=== PATIENT | female | born 1970 | race Caucasian/White ===

== ENCOUNTER 2020-11-14 06:40 | Inpatient (IN) ==
--- NOTE | 2020-11-14 06:52 | DR.SOBA ---
HPI <Tomy Osborn Osmel Filed: 11/14/20 08:47> Time Seen Time Seen by Provider: 11/14/20 06:48 HPI Comment HPI Comment: PATIENT RECENTLY DIAGNOSED WITH COVID 2 DAYS AGO, RECEIVED 2ND COURSE OF REMDESIVIR, ANTIBIOTIC ZITHROMAX, PLACED ON HOME OXYGEN, HAS INCREASING DYSPNEA AND NONPRODUCTIVE COUGH. Complaints Chief Complaint Doctors Comments: COUGH, INCREASING DYSPNEA COVID-19 Coronavirus risk:travel/contact w/high risk person: Yes Has patient experienced Coronavirus symptoms: Yes Coronavirus symptoms experienced: Fever, Coughing and Shortness of Breath Source History Provided: Patient Mode of Arrival Mode of Arrival: Wheelchair Context Onset:: At Rest Modifying Factors Worsens:: Exertion Improves:: Nothing Associated Signs and Symptoms Associated Signs and Symptoms: Cough If Cough Cough: Nonproductive PMH <Tomy Osborn Last Filed: 11/14/20 08:47> PMH Past Medical History: Hypertension Past Surgical History: No Social History Do you use any recreational Drugs:: No Travel Risk Coronavirus risk:travel/contact w/high risk person: Yes Has patient experienced Coronavirus symptoms: Yes Coronavirus symptoms experienced: Fever, Coughing and Shortness of Breath ROS <Tomy Osborn Last Filed: 11/14/20 08:47> Review of Systems Constitutional: See HPI, Fever and Weakness Eyes: No Symptoms Reported ENTM: No Symptoms Reported Respiratoy: See HPI, Dry Cough and Short of Breath Cardiovascular: No Symptoms Reported Gastrointestinal/Abdominal: No Symptoms Reported Genitourinary: No Symptoms Reported Neurological: No Symptoms Reported Musculoskeletal: No Symptoms Reported Integumentary: No Symptoms Reported Hematologic/Lymphatic: No Symptoms Reported Endocrine: No Symptoms Reported Psychiatric: No Symptoms Reported All Other Systems: Reviewed and Negative PE <Tomy Osborn Osmel Filed: 11/14/20 08:47> Vital Signs Vitals: Pulse Rate 78 Respiratory Rate 26 Blood Pressure [Right Arm] 118/65 Blood Pressure 126/84 O2 Sat by Pulse Oximetry 94 General General Appearance: Alert and In Distress (MODERATE DISTRESS) Head Head Exam: Normal Inspection and Atraumatic Eyes Eye exam: Normal Appearance, PERRL and EOMI ENT ENT Exam: Normal Exam and Normal Oropharynx Neck Neck Exam: Normal Inspection and Full ROM Respiratory Respiratory Exam: Bilateral: Decreased Breath Sounds (MODERATE AIR EXCHANGE) and Bilateral: Dullness on Percussion and Lower: Decreased Breath Sounds (MODERATE AIR EXCHANGE) and Lower: Dullness on Percussion Cardiovascular Cardiovascular Exam: Regular Rate and Normal Rhythm Abdominal Exam Abdominal Exam: Normal Inspection, Normal Bowel Sounds and Soft Extremities Extremities Exam: Normal Inspection and Full ROM Back Back Exam: Normal Inspection, Full ROM and Tenderness Neurologic Neurological Exam: Alert and Oriented X3 Psychiatric Psychiatric Exam: Normal Affect and Normal Mood Skin Skin Exam: Warm and Dry <CARLITOS VELAZQUEZ - Last Filed: 11/14/20 09:53> Vital Signs Vitals: Pulse Rate 78 Respiratory Rate 26 Blood Pressure [Right Arm] 118/65 Blood Pressure 126/84 O2 Sat by Pulse Oximetry 94 MDM <Tomy Osborn - Last Filed: 11/14/20 08:47> Differential Diagnosis Differential Diagnosis Comment:: COVID PNEUMONIA, PULMONARY EMBOLISM COURSE <Tomy Osborn - Last Filed: 11/14/20 08:47> Treatment Treatment: IV NORMAL SALINE 1 LITER BOLUS, ANTIBIOTIC LEVAQUIN 750MG IVPB, SO LUMEDROL 125MG IV, DUONEB 12ML AEROSOL TX, PATIENT CARE ENDORSED TO DR VELAZQUEZ AT 0845 ROR <Tomy Osborn - Last Filed: 11/14/20 08:47> Labs Reviewed Laboratory Results Reviewed?: Yes Result Diagrams: 11/14/20 07:24 11/14/20 07:24 Laboratory: WBC 4.4 X10^3/uL (3.6-10.0) 11/14/20 07:24 RBC 5.68 X10^6/uL (3.5-5.4) H 11/14/20 07:24 Hgb 15.9 g/dL (12.0-16.0) 11/14/20 07:24 Hct 45.4 % (36.0-47.0) 11/14/20 07:24 MCV 80.0 fL (80.0-100.0) 11/14/20 07:24 MCH 28.0 pg (27.0-34.0) 11/14/20 07:24 MCHC 35.0 g/dL (33.0-35.0) 11/14/20 07:24 RDW 14.0 % (11.6-16.5) 11/14/20 07:24 Plt Count 165 X10^3/uL (150.0-450.0) 11/14/20 07:24 MPV 8.4 fL (7.4-11.0) 11/14/20 07:24 Neut % (Auto) 76.5 % (42.0-75.0) H 11/14/20 07:24 Lymph % (Auto) 11.0 % (21.0-51.0) L 11/14/20 07:24 [place] % (Auto) 12.4 % (0.0-13.0) 11/14/20 07:24 Eos % (Auto) 0.0 % (0.9-2.9) L 11/14/20 07:24 Baso % (Auto) 0.1 % (0.2-1.0) L 11/14/20 07:24 Neut # (Auto) 3.3 x10^3/uL (2.2-4.8) 11/14/20 07:24 Lymph # (Auto) 0.5 X10^3/uL (1.3-2.9) L 11/14/20 07:24 [place] # (Auto) 0.5 x10^3/uL (0.3-0.8) 11/14/20 07:24 Eos # (Auto) 0.0 x10^3/uL (0.0-0.2) 11/14/20 07:24 Baso # (Auto) 0.0 X10^3/uL (0.0-0.1) 11/14/20 07:24 Absolute Nucleated RBC 0.1 /100WBC 11/14/20 07:24 PT 13.1 SECONDS (11.8-14.3) 11/14/20 07:24 INR Target Range - 11/14/20 07:24 INR 1.04 (0.8-1.3) 11/14/20 07:24 D-Dimer 0.30 ug/ml (0.0-0.57) 11/14/20 07:24 Sample Site Lr 11/14/20 07:09 ABG pH 7.480 (7.35-7.45) H 11/14/20 07:09 ABG pCO2 34.0 mmHg (35.0-45.0) L 11/14/20 07:09 ABG pO2 59.0 mmHg (80.0-100.0) L 11/14/20 07:09 ABG HCO3 25.3 mmol/L (22-26) 11/14/20 07:09 ABG O2 Saturation 92.0 % (90-100) 11/14/20 07:09 ABG Base Excess 2.1 mmol/L (-2.0-2.0) H 11/14/20 07:09 Justin Test Pos 11/14/20 07:09 A-a Gradient 612.0 mmHg 11/14/20 07:09 FiO2 100.0 11/14/20 07:09 Blood Gas Comments Min well sd/gmb 11/14/20 07:09 Sodium 137 mmol/L (136-145) 11/14/20 07:24 Corrected Sodium 143 mmol/L (136-145) 11/14/20 07:24 Potassium 4.0 mmol/L (3.5-5.1) 11/14/20 07:24 Chloride 99 mmol/L (98-107) 11/14/20 07:24 Carbon Dioxide 26.8 mmol/L (21-32) 11/14/20 07:24 BUN 27 mg/dL (7-18) H 11/14/20 07:24 Creatinine 0.87 mg/dL (0.55-1.02) 11/14/20 07:24 Est GFR (MDRD) Af Amer > 60 (>60) 11/14/20 07:24 Est GFR (MDRD) Non-Af > 60 (>60) 11/14/20 07:24 Glucose 353 mg/dL (65-99) H 11/14/20 07:24 Calcium 8.7 mg/dL (8.5-10.1) 11/14/20 07:24 Ferritin 2202 ng/mL (8-252) H 11/14/20 07:24 XRAY X-ray Results: PORTABLE CHEST XRAY- INTERVAL WORSENING RUL INFILTRATES <PETER M [place] - Last Filed: 11/14/20 09:53> Labs Reviewed Laboratory: WBC 4.4 X10^3/uL (3.6-10.0) 11/14/20 07:24 RBC 5.68 X10^6/uL (3.5-5.4) H 11/14/20 07:24 Hgb 15.9 g/dL (12.0-16.0) 11/14/20 07:24 Hct 45.4 % (36.0-47.0) 11/14/20 07:24 MCV 80.0 fL (80.0-100.0) 11/14/20 07:24 MCH 28.0 pg (27.0-34.0) 11/14/20 07:24 MCHC 35.0 g/dL (33.0-35.0) 11/14/20 07:24 RDW 14.0 % (11.6-16.5) 11/14/20 07:24 Plt Count 165 X10^3/uL (150.0-450.0) 11/14/20 07:24 MPV 8.4 fL (7.4-11.0) 11/14/20 07:24 Neut % (Auto) 76.5 % (42.0-75.0) H 11/14/20 07:24 Lymph % (Auto) 11.0 % (21.0-51.0) L 11/14/20 07:24 [place] % (Auto) 12.4 % (0.0-13.0) 11/14/20 07:24 Eos % (Auto) 0.0 % (0.9-2.9) L 11/14/20 07:24 Baso % (Auto) 0.1 % (0.2-1.0) L 11/14/20 07:24 Neut # (Auto) 3.3 x10^3/uL (2.2-4.8) 11/14/20 07:24 Lymph # (Auto) 0.5 X10^3/uL (1.3-2.9) L 11/14/20 07:24 [place] # (Auto) 0.5 x10^3/uL (0.3-0.8) 11/14/20 07:24 Eos # (Auto) 0.0 x10^3/uL (0.0-0.2) 11/14/20 07:24 Baso # (Auto) 0.0 X10^3/uL (0.0-0.1) 11/14/20 07:24 Absolute Nucleated RBC 0.1 /100WBC 11/14/20 07:24 PT 13.1 SECONDS (11.8-14.3) 11/14/20 07:24 INR Target Range - 11/14/20 07:24 INR 1.04 (0.8-1.3) 11/14/20 07:24 D-Dimer 0.30 ug/ml (0.0-0.57) 11/14/20 07:24 Sample Site Lr 11/14/20 07:09 ABG pH 7.480 (7.35-7.45) H 11/14/20 07:09 ABG pCO2 34.0 mmHg (35.0-45.0) L 11/14/20 07:09 ABG pO2 59.0 mmHg (80.0-100.0) L 11/14/20 07:09 ABG HCO3 25.3 mmol/L (22-26) 11/14/20 07:09 ABG O2 Saturation 92.0 % (90-100) 11/14/20 07:09 ABG Base Excess 2.1 mmol/L (-2.0-2.0) H 11/14/20 07:09 Justin Test Pos 11/14/20 07:09 A-a Gradient 612.0 mmHg 11/14/20 07:09 FiO2 100.0 11/14/20 07:09 Blood Gas Comments Min well sd/gmb 11/14/20 07:09 Sodium 137 mmol/L (136-145) 11/14/20 07:24 Corrected Sodium 143 mmol/L (136-145) 11/14/20 07:24 Potassium 4.0 mmol/L (3.5-5.1) 11/14/20 07:24 Chloride 99 mmol/L (98-107) 11/14/20 07:24 Carbon Dioxide 26.8 mmol/L (21-32) 11/14/20 07:24 BUN 27 mg/dL (7-18) H 11/14/20 07:24 Creatinine 0.87 mg/dL (0.55-1.02) 11/14/20 07:24 Est GFR (MDRD) Af Amer > 60 (>60) 11/14/20 07:24 Est GFR (MDRD) Non-Af > 60 (>60) 11/14/20 07:24 Glucose 353 mg/dL (65-99) H 11/14/20 07:24 Calcium 8.7 mg/dL (8.5-10.1) 11/14/20 07:24 Ferritin 2202 ng/mL (8-252) H 11/14/20 07:24 Opioid <Tomy Osborn - Last Filed: 11/14/20 08:47> Opioid Risk Tool Age (Robin box if 16-45): No History of Preadolescent Sexual Abuse: No Total: 0 Total Score Risk Category: Low Risk Copyright: Beau CRAIG predicting aberrant behaviors <CARLITOS VELAZQUEZ - Last Filed: 11/14/20 09:53> Opioid Risk Tool Total: 0 Total Score Risk Category: Low Risk <Tomy Osborn - Last Filed: 11/14/20 08:47> Diagnosis Discharge Problem: Pneumonia due to COVID-19 virus <CARLITOS VELAZQUEZ - Last Filed: 11/14/20 09:53> Diagnosis Narrative Support Text: admit to dr lemus- inpatient <CARLITOS VELAZQUEZ - Last Filed: 11/14/20 09:53> Additional Notes Additional Notes: inpatient
[2020-11-14 06:55] VITALS: BMI 31.7
[2020-11-14] MEDS ORDERED: DUONEB 0.5 MG/3 MG (3 mL) NEB ONE (07:04)
[2020-11-14] MEDS ORDERED: SOLU-Medrol 125 MG VIAL IVP ONE (07:04)
[2020-11-14] MEDS ORDERED: LEVAQUIN PREMIX IV 750 MG 750 MG/150 ML BAG IV ONE ×2 (07:04→07:25)
[2020-11-14 07:19] LABS: ABG BASE EXCESS 2.1 mmol/L (-2.0-2.0); ABG HCO3 25.3 mmol/L (22-26)
[2020-11-14 07:20] LABS: ABG ALLEN TEST POS
[2020-11-14] MEDS ORDERED: NS 1000 ML 1,000 ML IV ONE (07:23)
[2020-11-14] MEDS ORDERED: SOLU-Medrol 125 MG VIAL ONE (07:24)
[2020-11-14] MEDS ORDERED: NS 1000 ML 1,000 ML ONE ×2 (07:24→14:39)
--- NOTE | 2020-11-14 07:45 | RAD ---
HISTORYDYSPNEASTUDYCHEST, 1 [id number]/14/2021.TECHNIQUEAP view of the chestFINDINGSCardiac and mediastinal contours are within normal limits. Interval worsening of scattered bilateral airspace and interstitial opacities particularly in the medial right upper lobe. No definite pleural effusion or pneumothorax. Soft tissue attenuation limits evaluation.IMPRESSIONInterval worsening of airspace disease particularly in the right upper lobe consistent with worsening pneumonia.Electronically signed by: Bud Roque (Nov 14, 2020 07:43:21)
[2020-11-14 07:48] LABS: BASOPHILS % (AUTO) 0.1 % (0.2-1.0); HEMATOCRIT 45.4 % (36.0-47.0); HEMOGLOBIN 15.9 g/dL (12.0-16.0); LYMPHOCYTES # (AUTO) 0.5 X10^3/uL (1.3-2.9); MEAN PLATELET VOLUME 8.4 fL (7.4-11.0); MONOCYTES # (AUTO) 0.5 x10^3/uL (0.3-0.8); MONOCYTES % (AUTO) 12.4 % (0.0-13.0); NEUTROPHILS # (AUTO) 3.3 x10^3/uL (2.2-4.8); NEUTROPHILS % (AUTO) 76.5 % (42.0-75.0); PLATELET COUNT 165 X10^3/uL (150.0-450.0); RED BLOOD COUNT 5.68 X10^6/uL (3.5-5.4); WHITE BLOOD COUNT 4.4 X10^3/uL (3.6-10.0)
[2020-11-14 08:00] LABS: BLOOD UREA NITROGEN 27 mg/dL (7-18); CALCIUM 8.7 mg/dL (8.5-10.1); CARBON DIOXIDE 26.8 mmol/L (21-32); CHLORIDE 99 mmol/L (98-107); COR NA(FOR HYPERGLY) 143 mmol/L (136-145); CREATININE 0.87 mg/dL (0.55-1.02); SODIUM 137 mmol/L (136-145); eGFR NON BLACK RACES > 60 (>60)
[2020-11-14] MEDS ORDERED: ZOFRAN INJ 4 MG VIAL IVP PRN (13:15)
[2020-11-14] MEDS ORDERED: TESSALON PERLES PO PRN (13:15)
[2020-11-14] MEDS ORDERED: REMDESIVIR 200 MG in NS 100 ML IV 140 ML IV ONE (13:16)
[2020-11-14] MEDS: ZITHROMAX INJ 500 MG VIAL 500 MG in NS 250 ML IV 250 ML IV SCH (14:05)
[2020-11-14] MEDS: IVERMECTIN PO SCH (15:00)
[2020-11-14] MEDS: VIBRAMYCIN PO SCH ×2 (15:00→21:03)
[2020-11-14] MEDS: SOLU-Medrol 125 MG VIAL IVP SCH ×2 (15:00→21:55)
[2020-11-14] MEDS: PROTONIX INJ 40 MG VIAL IVP SCH ×2 (15:00→21:03)
[2020-11-14] MEDS: LOVENOX INJ 40 MG SYR SC SCH (15:00)
[2020-11-14] MEDS: ROBITUSSIN DM PO SCH ×3 (15:00→21:03)
[2020-11-14] MEDS: BROVANA IN SCH (21:25)
[2020-11-14] MEDS: PULMICORT NEB TX 0.5 MG NEB SCH (21:25)
[2020-11-14] MEDS ORDERED: HumuLIN R ONE (21:28)
[2020-11-14] MEDS: HumuLIN R SUBCUT PRN (21:33)
[2020-11-15 04:22] LABS: ABG HCO3 29.1 mmol/L (22-26)
[2020-11-15] MEDS: SOLU-Medrol 125 MG VIAL IVP SCH ×3 (06:03→21:05)
[2020-11-15 06:20] LABS: BASOPHILS % (AUTO) 0.1 % (0.2-1.0); HEMATOCRIT 43.2 % (36.0-47.0); LYMPHOCYTES # (AUTO) 0.6 X10^3/uL (1.3-2.9); LYMPHOCYTES % (AUTO) 12.1 % (21.0-51.0); MEAN CORPUSCULAR HGB CONC 34.6 g/dL (33.0-35.0); MEAN CORPUSCULAR VOLUME 80.8 fL (80.0-100.0); MEAN PLATELET VOLUME 8.2 fL (7.4-11.0); MONOCYTES # (AUTO) 0.5 x10^3/uL (0.3-0.8); NEUTROPHILS # (AUTO) 3.6 x10^3/uL (2.2-4.8); NEUTROPHILS % (AUTO) 77.8 % (42.0-75.0); PLATELET COUNT 182 X10^3/uL (150.0-450.0); RED BLOOD COUNT 5.34 X10^6/uL (3.5-5.4); RED CELL DISTRIBUTION WIDTH 13.8 % (11.6-16.5); WHITE BLOOD COUNT 4.6 X10^3/uL (3.6-10.0)
[2020-11-15 06:42] LABS: BLOOD UREA NITROGEN 23 mg/dL (7-18); CALCIUM 8.3 mg/dL (8.5-10.1); CARBON DIOXIDE 28.5 mmol/L (21-32); CHLORIDE 101 mmol/L (98-107); COR NA(FOR HYPERGLY) 142 mmol/L (136-145); CREATININE 0.93 mg/dL (0.55-1.02); SODIUM 137 mmol/L (136-145); eGFR NON BLACK RACES > 60 (>60)
[2020-11-15] MEDS: BROVANA IN SCH ×2 (09:00→20:55)
[2020-11-15] MEDS: PULMICORT NEB TX 0.5 MG NEB SCH ×2 (09:00→20:55)
[2020-11-15] MEDS: VIBRAMYCIN PO SCH ×2 (09:30→21:05)
[2020-11-15] MEDS: ROBITUSSIN DM PO SCH ×4 (09:30→21:05)
[2020-11-15] MEDS: REMDESIVIR 100 MG in NS 100 ML IV + SPIKE MINIBAG* 120 ML IV SCH (09:30)
[2020-11-15] MEDS: IVERMECTIN PO SCH (09:30)
[2020-11-15] MEDS: LOVENOX INJ 40 MG SYR SC SCH (09:30)
[2020-11-15] MEDS: ZESTRIL TAB 20 MG PO SCH (09:30)
[2020-11-15] MEDS: PROTONIX INJ 40 MG VIAL IVP SCH ×2 (09:30→21:05)
[2020-11-15] MEDS: ZITHROMAX INJ 500 MG VIAL 500 MG in NS 250 ML IV 250 ML IV SCH (10:27)
[2020-11-15] MEDS: HumuLIN R SUBCUT PRN ×2 (13:00→21:06)
[2020-11-15] MEDS ORDERED: TYLENOL 325 MG TAB PO ONE (13:55)
[2020-11-15] MEDS: TYLENOL 325 MG TAB PO PRN (13:58)
[2020-11-15] MEDS ORDERED: GLUCOPHAGE ONE (17:20)
[2020-11-15] MEDS: GLUCOPHAGE PO SCH (17:27)
--- NOTE | 2020-11-15 18:08 | DR.H&P ---
H&P - History & Physical for Day of: H&P Date: 11/14/20 - Chief Complaint Chief Complaint: COVID 19+ SOB, CCC - History of Present Illness History of Present Illness: PATIENT RECENTLY DIAGNOSED WITH COVID 2 DAYS AGO, RECEIVED 2ND COURSE OF REMDESIVIR, ANTIBIOTIC ZITHROMAX, PLACED ON HOME OXYGEN, HAS INCREASING DYSPNEA AND NONPRODUCTIVE COUGH - Past Medical History Past Medical History: Hypertension - Past Surgical History Surgical History: , Other - Family History Family Medical History: Cancer, Hypertension - Social History Does patient currently use any type of tobacco product: No Have you used tobacco products in the last 12 months: No Type of Tobacco Use: None Does any household member use tobacco: No Alcohol Use: None Drug Use: None - Medications Home Medications: shellfish derived Allergy (Verified 11/12/20 15:09) CONTINUE taking the following medications lisinopril 20 mg PO DAILY 11/14/20 [History] - Review of Systems Constitutional: Fever, Weakness, Malaise Eyes: No Symptoms Reported ENT: No Symptoms Reported Respiratory: Shortness of Breath, SOB with Excertion Cardiovascular: No Symptoms Reported Gastrointestinal: Nausea Genitourinary: No Symptoms Reported Musculoskeletal: No Symptoms Reported Skin: No Symptoms Reported Neurological: Weakness - Physical Exam Vital Signs: Temperature 97.8 F Pulse Rate [Left Brachial] 76 Pulse Rate 75 Respiratory Rate 20 Blood Pressure [Left Arm] 112/69 Blood Pressure [Right Arm] 118/65 Blood Pressure 129/78 O2 Sat by Pulse Oximetry 92 Oriented: Normal Eyes: Normal Ear: Normal Nose: Normal Throat: Dry Respiratory: RLL Diminished, LLL Diminished Cardiovascular: Normal : Normal Auscultation: Bowel Sounds: Normal Palpation: Normal Tenderness: Normal Skin: Decreased Turgur Musculoskeletal: Normal Psychiatric: Normal Mood Description: Calm Speech Pattern: Clear, Appropriate - Assessment/Plan (1) Pneumonia due to COVID-19 virus Status: Acute Plan: ADMIT, ICU ISOLATION COVID UNIT. IV REMDESIVIR, IV SOLU MEDROL, IV HYDRATION, DUO NEBS. CTA ON ADMISSION, LOVENOX SQ. PT, RT. IV ATBX, BC AND SPUTUM CULTURE (2) Hypoxia Status: Acute - Allergies Allergies/Adverse Reactions: Allergies Allergy/AdvReac Type Severity Reaction Status Date / Time shellfish derived Allergy Verified 11/12/20 15:09
[2020-11-15] MEDS: SNACK - Diabetic Appropriate PO SCH (20:00)
[2020-11-15 20:54] LABS: ALANINE AMINOTRANSFERASE 54 Units/L (12-78); ALKALINE PHOSPHATASE 65 Units/L (46-116); ASPARTATE AMINO TRANSFERASE 34 Units/L (15-37); COR CA(FOR HYPOALB) 9.1 mg/dL (8.5-10.1); TOTAL PROTEIN 6.6 g/dL (6.4-8.2)
[2020-11-16 00:30] LABS: ALANINE AMINOTRANSFERASE 57 Units/L (12-78); ALBUMIN 3.1 g/dL (3.4-5.0); ALKALINE PHOSPHATASE 91 Units/L (46-116); ASPARTATE AMINO TRANSFERASE 39 Units/L (15-37); COR CA(FOR HYPOALB) 9.4 mg/dL (8.5-10.1); TOTAL PROTEIN 6.9 g/dL (6.4-8.2); TROPONIN I < 0.02 ng/mL (0-1.5)
[2020-11-16] MEDS ORDERED: GLUCOPHAGE ONE ×2 (05:46→17:00)
[2020-11-16] MEDS: SOLU-Medrol 125 MG VIAL IVP SCH (06:00)
[2020-11-16] MEDS: GLUCOPHAGE PO SCH ×2 (06:01→17:04)
[2020-11-16 06:37] LABS: BASOPHILS % (AUTO) 0.1 % (0.2-1.0); HEMATOCRIT 41.1 % (36.0-47.0); HEMOGLOBIN 14.3 g/dL (12.0-16.0); LYMPHOCYTES # (AUTO) 0.5 X10^3/uL (1.3-2.9); LYMPHOCYTES % (AUTO) 11.7 % (21.0-51.0); MEAN CORPUSCULAR HEMOGLOBIN 27.6 pg (27.0-34.0); MEAN CORPUSCULAR HGB CONC 34.7 g/dL (33.0-35.0); MEAN CORPUSCULAR VOLUME 79.7 fL (80.0-100.0); MEAN PLATELET VOLUME 8.4 fL (7.4-11.0); MONOCYTES # (AUTO) 0.4 x10^3/uL (0.3-0.8); MONOCYTES % (AUTO) 9.4 % (0.0-13.0); NEUTROPHILS # (AUTO) 3.7 x10^3/uL (2.2-4.8); NEUTROPHILS % (AUTO) 78.8 % (42.0-75.0); PLATELET COUNT 179 X10^3/uL (150.0-450.0); RED BLOOD COUNT 5.16 X10^6/uL (3.5-5.4); RED CELL DISTRIBUTION WIDTH 13.7 % (11.6-16.5); WHITE BLOOD COUNT 4.6 X10^3/uL (3.6-10.0)
[2020-11-16] MEDS: HumuLIN R SUBCUT PRN ×4 (06:58→22:00)
[2020-11-16 06:59] LABS: ALANINE AMINOTRANSFERASE 43 Units/L (12-78); ALBUMIN 2.4 g/dL (3.4-5.0); ALKALINE PHOSPHATASE 53 Units/L (46-116); ASPARTATE AMINO TRANSFERASE 27 Units/L (15-37); BLOOD UREA NITROGEN 23 mg/dL (7-18); CARBON DIOXIDE 29.1 mmol/L (21-32); CHLORIDE 103 mmol/L (98-107); COR CA(FOR HYPOALB) 9.3 mg/dL (8.5-10.1); COR NA(FOR HYPERGLY) 142 mmol/L (136-145); CREATININE 0.66 mg/dL (0.55-1.02); SODIUM 138 mmol/L (136-145); TOTAL PROTEIN 5.6 g/dL (6.4-8.2); eGFR NON BLACK RACES > 60 (>60)
[2020-11-16] MEDS: ROBITUSSIN DM PO SCH ×4 (08:16→21:59)
[2020-11-16] MEDS: PROTONIX INJ 40 MG VIAL IVP SCH ×2 (08:16→21:58)
[2020-11-16] MEDS: IVERMECTIN PO SCH (08:16)
[2020-11-16] MEDS: VIBRAMYCIN PO SCH ×2 (08:16→21:58)
[2020-11-16] MEDS: ZESTRIL TAB 20 MG PO SCH (08:16)
[2020-11-16] MEDS: REMDESIVIR 100 MG in NS 100 ML IV + SPIKE MINIBAG* 120 ML IV SCH (08:16)
[2020-11-16] MEDS: LOVENOX INJ 40 MG SYR SC SCH (08:17)
[2020-11-16] MEDS: PULMICORT NEB TX 0.5 MG NEB SCH ×2 (09:12→20:43)
[2020-11-16] MEDS: BROVANA IN SCH ×2 (09:12→20:43)
--- NOTE | 2020-11-16 10:14 | RAD ---
HISTORYhypoxia, covid 19STUDYCHEST x-ray, 1 VIEWCOMPARISONX-ray 11/14/2020FINDINGSHeart is normal in size. Worsening bilateral pneumonia is likely from COVID 19. No pneumothorax or pleural effusion is seen.IMPRESSIONProminent bilateral COVID-19 pneumonia has worsened since prior study.Electronically signed by: Adams Jaime (Nov 16, 2020 10:11:57)
[2020-11-16] MEDS: ZITHROMAX INJ 500 MG VIAL 500 MG in NS 250 ML IV 250 ML IV SCH (10:30)
[2020-11-16 10:47] LABS: ABG BASE EXCESS 4.2 mmol/L (-2.0-2.0); ABG HCO3 27.3 mmol/L (22-26)
[2020-11-16] MEDS: SOLU-Medrol 40 MG VIAL IVP SCH ×2 (14:30→21:58)
[2020-11-16] MEDS ORDERED: BUTT CREAM (COMPOUND) ONE (17:08)
[2020-11-16] MEDS: BUTT CREAM (COMPOUND) TOP PRN (17:12)
[2020-11-16] MEDS: TORADOL 15 MG VIAL IVP PRN (20:01)
[2020-11-16] MEDS: SNACK - Diabetic Appropriate PO SCH (21:58)
--- NOTE | 2020-11-17 05:12 | RAD ---
HISTORYcovidSTUDYPortable AP [id number]/18/2020FINDINGSSimilar normal heart size and contour. There is slight suggested interval increased/progression of bilateral infiltrates. No additional consolidation, complicating pneumothorax or pleural fluid demonstrated.IMPRESSIONPersistent bilateral pneumonia with slight suggested progression since 1 day earlier.Electronically signed by: MADALYN ALEXANDER (Nov 17, 2020 05:10:15)
[2020-11-17] MEDS ORDERED: GLUCOPHAGE ONE ×2 (05:18→16:53)
[2020-11-17 06:12] LABS: BASOPHILS % (AUTO) 0.1 % (0.2-1.0); HEMATOCRIT 40.1 % (36.0-47.0); HEMOGLOBIN 13.9 g/dL (12.0-16.0); LYMPHOCYTES # (AUTO) 0.6 X10^3/uL (1.3-2.9); LYMPHOCYTES % (AUTO) 10.7 % (21.0-51.0); MEAN CORPUSCULAR HEMOGLOBIN 27.6 pg (27.0-34.0); MEAN CORPUSCULAR HGB CONC 34.6 g/dL (33.0-35.0); MEAN CORPUSCULAR VOLUME 79.9 fL (80.0-100.0); MEAN PLATELET VOLUME 8.1 fL (7.4-11.0); MONOCYTES # (AUTO) 0.5 x10^3/uL (0.3-0.8); MONOCYTES % (AUTO) 8.3 % (0.0-13.0); NEUTROPHILS # (AUTO) 4.8 x10^3/uL (2.2-4.8); NEUTROPHILS % (AUTO) 80.9 % (42.0-75.0); PLATELET COUNT 209 X10^3/uL (150.0-450.0); RED BLOOD COUNT 5.02 X10^6/uL (3.5-5.4); RED CELL DISTRIBUTION WIDTH 13.8 % (11.6-16.5)
[2020-11-17 06:13] LABS: ABG BASE EXCESS 7.3 mmol/L (-2.0-2.0); ABG HCO3 29.3 mmol/L (22-26)
[2020-11-17 06:15] LABS: ABG ALLEN TEST POS
[2020-11-17] MEDS: SOLU-Medrol 40 MG VIAL IVP SCH (06:23)
[2020-11-17] MEDS: GLUCOPHAGE PO SCH ×2 (06:24→16:57)
[2020-11-17] MEDS: TORADOL 15 MG VIAL IVP PRN (06:24)
[2020-11-17 06:29] LABS: ALANINE AMINOTRANSFERASE 43 Units/L (12-78); ALBUMIN 2.2 g/dL (3.4-5.0); ALKALINE PHOSPHATASE 53 Units/L (46-116); ASPARTATE AMINO TRANSFERASE 23 Units/L (15-37); BLOOD UREA NITROGEN 27 mg/dL (7-18); CALCIUM 7.8 mg/dL (8.5-10.1); CARBON DIOXIDE 30.6 mmol/L (21-32); CHLORIDE 101 mmol/L (98-107); COR CA(FOR HYPOALB) 9.2 mg/dL (8.5-10.1); COR NA(FOR HYPERGLY) 141 mmol/L (136-145); CREATININE 0.72 mg/dL (0.55-1.02); SODIUM 137 mmol/L (136-145); TOTAL PROTEIN 5.2 g/dL (6.4-8.2); eGFR NON BLACK RACES > 60 (>60)
[2020-11-17 08:36] LABS: MICROCYTOSIS SLIGHT; PLATELET MORPHOLOGY COMMENT NORMAL (NORMAL)
[2020-11-17] MEDS ORDERED: LASIX IVP ONE (10:04)
[2020-11-17] MEDS ORDERED: MICRO K EXTEN CAP 10 MEQ PO ONE (10:05)
[2020-11-17] MEDS: BROVANA IN SCH ×2 (10:06→21:00)
[2020-11-17] MEDS: PULMICORT NEB TX 0.5 MG NEB SCH ×2 (10:06→21:00)
[2020-11-17] MEDS ORDERED: ZESTRIL TAB 20 MG ONE (10:31)
[2020-11-17] MEDS: IVERMECTIN PO SCH (10:41)
[2020-11-17] MEDS: PROTONIX INJ 40 MG VIAL IVP SCH ×2 (10:41→21:44)
[2020-11-17] MEDS: REMDESIVIR 100 MG in NS 100 ML IV + SPIKE MINIBAG* 120 ML IV SCH (10:42)
[2020-11-17] MEDS: LOVENOX INJ 40 MG SYR SC SCH (10:42)
[2020-11-17] MEDS: VIBRAMYCIN PO SCH ×2 (10:43→21:46)
[2020-11-17] MEDS: ZITHROMAX INJ 500 MG VIAL 500 MG in NS 250 ML IV 250 ML IV SCH (10:43)
[2020-11-17] MEDS: ZESTRIL TAB 20 MG PO SCH (10:43)
[2020-11-17] MEDS: ROBITUSSIN DM PO SCH ×4 (10:43→21:45)
[2020-11-17] MEDS: HumuLIN R SUBCUT PRN ×3 (11:56→21:51)
[2020-11-17] MEDS: SOLU-Medrol 125 MG VIAL IVP SCH ×2 (14:36→22:50)
[2020-11-17] MEDS: SNACK - Diabetic Appropriate PO SCH (20:44)
[2020-11-18] MEDS: TORADOL 15 MG VIAL IVP PRN (06:57)
[2020-11-18] MEDS: HumuLIN R SUBCUT PRN ×5 (06:59→20:40)
[2020-11-18] MEDS: SOLU-Medrol 125 MG VIAL IVP SCH ×3 (07:00→22:10)
[2020-11-18] MEDS: BROVANA IN SCH ×2 (09:00→21:15)
[2020-11-18] MEDS: PULMICORT NEB TX 0.5 MG NEB SCH ×2 (09:07→21:15)
[2020-11-18] MEDS ORDERED: GLUCOPHAGE ONE ×2 (09:41→16:19)
[2020-11-18] MEDS ORDERED: ZESTRIL TAB 20 MG ONE (09:41)
[2020-11-18] MEDS: LOVENOX INJ 40 MG SYR SC SCH (09:45)
[2020-11-18] MEDS: IVERMECTIN PO SCH (09:50)
[2020-11-18] MEDS: GLUCOPHAGE PO SCH ×2 (09:53→16:31)
[2020-11-18] MEDS: ROBITUSSIN DM PO SCH ×4 (09:53→21:08)
[2020-11-18] MEDS: PROTONIX INJ 40 MG VIAL IVP SCH ×2 (09:54→21:30)
[2020-11-18] MEDS: ZESTRIL TAB 20 MG PO SCH (10:06)
[2020-11-18] MEDS: VIBRAMYCIN PO SCH ×2 (10:07→21:06)
[2020-11-18] MEDS: REMDESIVIR 100 MG in NS 100 ML IV + SPIKE MINIBAG* 120 ML IV SCH (10:08)
[2020-11-18] MEDS ORDERED: NS 250 ML IV 250 ML IV ONE (10:24)
--- NOTE | 2020-11-18 10:45 | RAD ---
HISTORYCOVID PNEUMONIASTUDYCHEST, 1 [id number]/19/2021FINDINGSThe cardiomediastinal silhouette is stable. Similar bilateral airspace opacities. The bony thorax appears intact.IMPRESSIONSimilar bilateral airspace opacities.Electronically signed by: KEVYN PAK (Nov 18, 2020 10:44:23)
[2020-11-18 10:54] LABS: ABG ALLEN TEST POS; ABG BASE EXCESS 6.1 mmol/L (-2.0-2.0); ABG HCO3 29.6 mmol/L (22-26)
[2020-11-18 11:03] LABS: BASOPHILS % (AUTO) 0.1 % (0.2-1.0); HEMATOCRIT 42.4 % (36.0-47.0); HEMOGLOBIN 14.6 g/dL (12.0-16.0); LYMPHOCYTES # (AUTO) 0.4 X10^3/uL (1.3-2.9); LYMPHOCYTES % (AUTO) 5.8 % (21.0-51.0); MEAN CORPUSCULAR HEMOGLOBIN 27.7 pg (27.0-34.0); MEAN CORPUSCULAR HGB CONC 34.5 g/dL (33.0-35.0); MEAN CORPUSCULAR VOLUME 80.2 fL (80.0-100.0); MEAN PLATELET VOLUME 8.1 fL (7.4-11.0); MONOCYTES # (AUTO) 0.5 x10^3/uL (0.3-0.8); MONOCYTES % (AUTO) 6.9 % (0.0-13.0); NEUTROPHILS # (AUTO) 5.9 x10^3/uL (2.2-4.8); NEUTROPHILS % (AUTO) 87.2 % (42.0-75.0); PLATELET COUNT 233 X10^3/uL (150.0-450.0); RED BLOOD COUNT 5.28 X10^6/uL (3.5-5.4); RED CELL DISTRIBUTION WIDTH 13.7 % (11.6-16.5); WHITE BLOOD COUNT 6.8 X10^3/uL (3.6-10.0)
[2020-11-18 11:14] LABS: ALANINE AMINOTRANSFERASE 60 Units/L (12-78); ALBUMIN 2.4 g/dL (3.4-5.0); ALKALINE PHOSPHATASE 80 Units/L (46-116); ASPARTATE AMINO TRANSFERASE 32 Units/L (15-37); BLOOD UREA NITROGEN 32 mg/dL (7-18); CALCIUM 7.8 mg/dL (8.5-10.1); CARBON DIOXIDE 31.3 mmol/L (21-32); CHLORIDE 99 mmol/L (98-107); COR CA(FOR HYPOALB) 9.1 mg/dL (8.5-10.1); COR NA(FOR HYPERGLY) 140 mmol/L (136-145); CREATININE 0.88 mg/dL (0.55-1.02); SODIUM 134 mmol/L (136-145); TOTAL PROTEIN 5.5 g/dL (6.4-8.2); eGFR NON BLACK RACES > 60 (>60)
[2020-11-18] MEDS: ZITHROMAX INJ 500 MG VIAL 500 MG in NS 250 ML IV 250 ML IV SCH (11:54)
[2020-11-18] MEDS: MAGIC MOUTHWASH MT PRN (16:21)
[2020-11-18] MEDS ORDERED: DIFLUCAN 100 MG IV (MIX by PHARMACY)* 100 MG/50 ML BAG IV SCH (18:00)
[2020-11-18] MEDS: BACTROBAN TOPICAL OINT TOP SCH ×2 (18:30→22:00)
[2020-11-18] MEDS ORDERED: DIFLUCAN 200 MG IV PREMIX* 200 MG/100 ML BAG IV ONE (19:28)
[2020-11-18] MEDS: SNACK - Diabetic Appropriate PO SCH (20:15)
[2020-11-18] MEDS: BETADINE SOLN TOP SCH (22:03)
[2020-11-18] MEDS: NS IRRIGATION* 1,000 ML IR SCH (22:04)
[2020-11-19] MEDS: HumuLIN R SUBCUT PRN ×6 (05:51→21:39)
--- NOTE | 2020-11-19 06:18 | RAD ---
HISTORYPneumoniaSTUDYPortable AP chestCOMPARISONAugust 2020FINDINGSContinued normal heart size. Persistent patchy bilateral pulmonary infiltrates especially lower lungs, similar in the left lung and slightly increased at the right base. No complicating pneumothorax or pleural fluid is seen.IMPRESSIONPersistent bilateral pneumonia with slight interval progression in the right lower lung.Electronically signed by: MADALYN ALEXANDER (Nov 19, 2020 06:16:31)
[2020-11-19 06:20] LABS: CHLORIDE 103 mmol/L (98-107); SODIUM 137 mmol/L (136-145)
[2020-11-19] MEDS: SOLU-Medrol 125 MG VIAL IVP SCH ×3 (06:25→21:52)
[2020-11-19 06:39] LABS: BASOPHILS % (AUTO) 0.1 % (0.2-1.0); HEMATOCRIT 40.5 % (36.0-47.0); HEMOGLOBIN 13.9 g/dL (12.0-16.0); LYMPHOCYTES # (AUTO) 0.4 X10^3/uL (1.3-2.9); LYMPHOCYTES % (AUTO) 5.8 % (21.0-51.0); MEAN CORPUSCULAR HEMOGLOBIN 27.6 pg (27.0-34.0); MEAN CORPUSCULAR HGB CONC 34.2 g/dL (33.0-35.0); MEAN CORPUSCULAR VOLUME 80.7 fL (80.0-100.0); MEAN PLATELET VOLUME 8.6 fL (7.4-11.0); MONOCYTES # (AUTO) 0.5 x10^3/uL (0.3-0.8); NEUTROPHILS # (AUTO) 6.5 x10^3/uL (2.2-4.8); NEUTROPHILS % (AUTO) 87.1 % (42.0-75.0); PLATELET COUNT 236 X10^3/uL (150.0-450.0); RED BLOOD COUNT 5.02 X10^6/uL (3.5-5.4); RED CELL DISTRIBUTION WIDTH 14.1 % (11.6-16.5); WHITE BLOOD COUNT 7.5 X10^3/uL (3.6-10.0)
[2020-11-19 06:44] LABS: ALANINE AMINOTRANSFERASE 55 Units/L (12-78); ALBUMIN 2.3 g/dL (3.4-5.0); ALKALINE PHOSPHATASE 74 Units/L (46-116); ASPARTATE AMINO TRANSFERASE 22 Units/L (15-37); BLOOD UREA NITROGEN 30 mg/dL (7-18); CALCIUM 8.2 mg/dL (8.5-10.1); CARBON DIOXIDE 26.8 mmol/L (21-32); COR CA(FOR HYPOALB) 9.6 mg/dL (8.5-10.1); COR NA(FOR HYPERGLY) 142 mmol/L (136-145); CREATININE 0.66 mg/dL (0.55-1.02); TOTAL PROTEIN 5.1 g/dL (6.4-8.2); eGFR NON BLACK RACES > 60 (>60)
[2020-11-19 07:08] LABS: BAND NEUTROPHILS % 4 % (0-10); PLATELET MORPHOLOGY COMMENT NORMAL (NORMAL)
[2020-11-19] MEDS ORDERED: GLUCOPHAGE ONE ×2 (07:25→16:38)
[2020-11-19] MEDS ORDERED: ZESTRIL TAB 20 MG ONE (07:26)
[2020-11-19] MEDS: BACTROBAN TOPICAL OINT TOP SCH ×2 (09:03→20:53)
[2020-11-19] MEDS: ZESTRIL TAB 20 MG PO SCH (09:04)
[2020-11-19] MEDS: NS IRRIGATION* 1,000 ML IR SCH ×2 (09:04→20:53)
[2020-11-19] MEDS: BETADINE SOLN TOP SCH ×2 (09:04→20:54)
[2020-11-19] MEDS: LOVENOX INJ 40 MG SYR SC SCH (09:04)
[2020-11-19] MEDS: VIBRAMYCIN PO SCH ×2 (09:05→20:52)
[2020-11-19] MEDS: ROBITUSSIN DM PO SCH ×4 (09:05→20:52)
[2020-11-19] MEDS: PROTONIX INJ 40 MG VIAL IVP SCH ×2 (09:05→20:53)
[2020-11-19] MEDS: BROVANA IN SCH ×2 (09:15→21:12)
[2020-11-19] MEDS: PULMICORT NEB TX 0.5 MG NEB SCH ×2 (09:15→21:11)
[2020-11-19] MEDS: GLUCOPHAGE PO SCH ×2 (09:16→17:15)
[2020-11-19] MEDS: ZITHROMAX INJ 500 MG VIAL 500 MG in NS 250 ML IV 250 ML IV SCH (09:16)
[2020-11-19] MEDS: DIFLUCAN 200 MG IV PREMIX* 200 MG/100 ML BAG IV SCH (11:30)
[2020-11-19] MEDS: LASIX IVP SCH (11:35)
[2020-11-19] MEDS: K-DUR TAB 20 MEQ PO SCH (11:35)
[2020-11-19 12:23] LABS: ABG BASE EXCESS 4.3 mmol/L (-2.0-2.0); ABG HCO3 26.9 mmol/L (22-26)
[2020-11-19 12:24] LABS: ABG ALLEN TEST POSITIVE
[2020-11-19] MEDS: LEVEMIR SC SCH ×2 (17:15→21:39)
[2020-11-19] MEDS: SNACK - Diabetic Appropriate PO SCH ×2 (20:54→21:51)
[2020-11-20] MEDS ORDERED: GLUCOPHAGE ONE ×2 (05:47→16:28)
[2020-11-20] MEDS: HumuLIN R SUBCUT PRN ×2 (05:55→20:26)
[2020-11-20] MEDS: SOLU-Medrol 125 MG VIAL IVP SCH ×3 (05:56→21:34)
[2020-11-20] MEDS: GLUCOPHAGE PO SCH ×2 (06:00→16:38)
[2020-11-20 06:47] LABS: ALANINE AMINOTRANSFERASE 47 Units/L (12-78); ALBUMIN 2.2 g/dL (3.4-5.0); ALKALINE PHOSPHATASE 68 Units/L (46-116); ASPARTATE AMINO TRANSFERASE 15 Units/L (15-37); BASOPHILS % (AUTO) 0.1 % (0.2-1.0); BLOOD UREA NITROGEN 29 mg/dL (7-18); CALCIUM 8.2 mg/dL (8.5-10.1); CARBON DIOXIDE 28.3 mmol/L (21-32); CHLORIDE 103 mmol/L (98-107); COR CA(FOR HYPOALB) 9.6 mg/dL (8.5-10.1); COR NA(FOR HYPERGLY) 142 mmol/L (136-145); CREATININE 0.87 mg/dL (0.55-1.02); HEMATOCRIT 39.9 % (36.0-47.0); HEMOGLOBIN 13.8 g/dL (12.0-16.0); LYMPHOCYTES # (AUTO) 0.4 X10^3/uL (1.3-2.9); LYMPHOCYTES % (AUTO) 5.5 % (21.0-51.0); MEAN CORPUSCULAR HEMOGLOBIN 27.9 pg (27.0-34.0); MEAN CORPUSCULAR HGB CONC 34.5 g/dL (33.0-35.0); MEAN CORPUSCULAR VOLUME 80.7 fL (80.0-100.0); MEAN PLATELET VOLUME 8.7 fL (7.4-11.0); MONOCYTES # (AUTO) 0.6 x10^3/uL (0.3-0.8); MONOCYTES % (AUTO) 7.9 % (0.0-13.0); NEUTROPHILS # (AUTO) 6.5 x10^3/uL (2.2-4.8); NEUTROPHILS % (AUTO) 86.5 % (42.0-75.0); PLATELET COUNT 242 X10^3/uL (150.0-450.0); RED BLOOD COUNT 4.95 X10^6/uL (3.5-5.4); RED CELL DISTRIBUTION WIDTH 14.2 % (11.6-16.5); SODIUM 138 mmol/L (136-145); WHITE BLOOD COUNT 7.5 X10^3/uL (3.6-10.0); eGFR NON BLACK RACES > 60 (>60)
[2020-11-20] MEDS ORDERED: ZESTRIL TAB 20 MG ONE (07:18)
[2020-11-20] MEDS: ROBITUSSIN DM PO SCH ×4 (08:37→20:27)
[2020-11-20] MEDS: VIBRAMYCIN PO SCH ×2 (08:38→20:25)
[2020-11-20] MEDS: K-DUR TAB 20 MEQ PO SCH (08:38)
[2020-11-20] MEDS: BETADINE SOLN TOP SCH ×2 (08:39→20:28)
[2020-11-20] MEDS: BACTROBAN TOPICAL OINT TOP SCH ×2 (08:39→20:27)
[2020-11-20] MEDS: NS IRRIGATION* 1,000 ML IR SCH ×2 (08:39→20:27)
[2020-11-20] MEDS: ZESTRIL TAB 20 MG PO SCH (08:39)
[2020-11-20] MEDS: LASIX IVP SCH (08:39)
[2020-11-20] MEDS: PROTONIX INJ 40 MG VIAL IVP SCH ×2 (08:40→20:25)
[2020-11-20] MEDS: DIFLUCAN 200 MG IV PREMIX* 200 MG/100 ML BAG IV SCH (08:41)
[2020-11-20] MEDS: PULMICORT NEB TX 0.5 MG NEB SCH ×2 (09:00→21:16)
[2020-11-20] MEDS: BROVANA IN SCH ×2 (09:00→21:16)
[2020-11-20] MEDS: LOVENOX INJ 40 MG SYR SC SCH (10:15)
[2020-11-20] MEDS: ZITHROMAX INJ 500 MG VIAL 500 MG in NS 250 ML IV 250 ML IV SCH (10:16)
--- NOTE | 2020-11-20 12:57 | RAD ---
HISTORYSOBSTUDYPortable AP [id number]/21/2021FINDINGSContinued normal heart size and contour. Similar degree and distribu tion of bilateral airspace disease. No additional consolidation, large pleural effusion or developing extrapulmonary air identified.IMPRESSIONStable appearance of bilateral pneumonia.Electronically sign ed by: MADALYN ALEXANDER (Nov 20, 2020 12:56:01)
[2020-11-20] MEDS: LEVEMIR SC SCH (20:25)
[2020-11-20] MEDS: SNACK - Diabetic Appropriate PO SCH ×2 (20:26→20:27)
[2020-11-21] MEDS ORDERED: GLUCOPHAGE ONE ×2 (05:18→16:59)
[2020-11-21] MEDS ORDERED: SOLU-Medrol 40 MG VIAL ONE (05:19)
[2020-11-21 05:42] LABS: ABG ALLEN TEST POS; ABG BASE EXCESS 4.2 mmol/L (-2.0-2.0); ABG HCO3 27.1 mmol/L (22-26)
[2020-11-21] MEDS: SOLU-Medrol 125 MG VIAL IVP SCH ×3 (05:43→21:50)
[2020-11-21] MEDS: GLUCOPHAGE PO SCH ×2 (05:45→17:08)
[2020-11-21] MEDS: HumuLIN R SUBCUT PRN ×4 (05:47→22:38)
[2020-11-21 07:30] LABS: BASOPHILS % (AUTO) 0.1 % (0.2-1.0); HEMATOCRIT 43.2 % (36.0-47.0); HEMOGLOBIN 14.7 g/dL (12.0-16.0); LYMPHOCYTES # (AUTO) 0.4 X10^3/uL (1.3-2.9); LYMPHOCYTES % (AUTO) 5.6 % (21.0-51.0); MEAN CORPUSCULAR HEMOGLOBIN 28.1 pg (27.0-34.0); MEAN CORPUSCULAR HGB CONC 34.1 g/dL (33.0-35.0); MEAN CORPUSCULAR VOLUME 82.3 fL (80.0-100.0); MEAN PLATELET VOLUME 8.2 fL (7.4-11.0); MONOCYTES # (AUTO) 0.4 x10^3/uL (0.3-0.8); MONOCYTES % (AUTO) 6.4 % (0.0-13.0); NEUTROPHILS # (AUTO) 6.1 x10^3/uL (2.2-4.8); NEUTROPHILS % (AUTO) 87.9 % (42.0-75.0); PLATELET COUNT 232 X10^3/uL (150.0-450.0); RED BLOOD COUNT 5.25 X10^6/uL (3.5-5.4); RED CELL DISTRIBUTION WIDTH 14.3 % (11.6-16.5)
[2020-11-21 07:42] LABS: ALANINE AMINOTRANSFERASE 52 Units/L (12-78); ALBUMIN 2.5 g/dL (3.4-5.0); ALKALINE PHOSPHATASE 61 Units/L (46-116); ASPARTATE AMINO TRANSFERASE 16 Units/L (15-37); BLOOD UREA NITROGEN 28 mg/dL (7-18); CALCIUM 8.3 mg/dL (8.5-10.1); CARBON DIOXIDE 29.9 mmol/L (21-32); CHLORIDE 100 mmol/L (98-107); COR CA(FOR HYPOALB) 9.5 mg/dL (8.5-10.1); COR NA(FOR HYPERGLY) 141 mmol/L (136-145); CREATININE 0.83 mg/dL (0.55-1.02); SODIUM 136 mmol/L (136-145); TOTAL PROTEIN 5.4 g/dL (6.4-8.2); eGFR NON BLACK RACES > 60 (>60)
[2020-11-21] MEDS ORDERED: ZESTRIL TAB 20 MG ONE (08:59)
[2020-11-21] MEDS: BROVANA IN SCH ×2 (09:30→20:50)
[2020-11-21] MEDS: PULMICORT NEB TX 0.5 MG NEB SCH ×2 (09:30→20:50)
[2020-11-21] MEDS: DIFLUCAN 200 MG IV PREMIX* 200 MG/100 ML BAG IV SCH (09:57)
[2020-11-21] MEDS: LOVENOX INJ 40 MG SYR SC SCH (09:58)
[2020-11-21] MEDS: ROBITUSSIN DM PO SCH ×3 (09:58→17:08)
[2020-11-21] MEDS: ZESTRIL TAB 20 MG PO SCH (09:58)
[2020-11-21] MEDS: VIBRAMYCIN PO SCH ×2 (09:58→21:38)
[2020-11-21] MEDS: BETADINE SOLN TOP SCH (09:59)
[2020-11-21] MEDS: NS IRRIGATION* 1,000 ML IR SCH (09:59)
[2020-11-21] MEDS: BACTROBAN TOPICAL OINT TOP SCH ×2 (09:59→22:15)
[2020-11-21] MEDS: PROTONIX INJ 40 MG VIAL IVP SCH ×2 (09:59→21:40)
[2020-11-21] MEDS: ZITHROMAX INJ 500 MG VIAL 500 MG in NS 250 ML IV 250 ML IV SCH (11:15)
[2020-11-21] MEDS: BUTT CREAM (COMPOUND) TOP PRN (17:45)
[2020-11-21] MEDS: SNACK - Diabetic Appropriate PO SCH (19:50)
[2020-11-21] MEDS: LEVEMIR SC SCH (21:45)
[2020-11-22] MEDS: BETADINE SOLN TOP SCH ×2 (00:09→10:20)
[2020-11-22] MEDS: NS IRRIGATION* 1,000 ML IR SCH ×2 (00:10→10:20)
[2020-11-22] MEDS: ROBITUSSIN DM PO SCH ×4 (00:11→17:08)
[2020-11-22 04:46] LABS: ABG ALLEN TEST POS; ABG BASE EXCESS 2.6 mmol/L (-2.0-2.0); ABG HCO3 26.2 mmol/L (22-26)
[2020-11-22] MEDS ORDERED: GLUCOPHAGE ONE ×2 (05:45→16:45)
[2020-11-22] MEDS: SOLU-Medrol 125 MG VIAL IVP SCH ×3 (05:52→22:44)
[2020-11-22] MEDS: GLUCOPHAGE PO SCH ×2 (06:00→16:55)
[2020-11-22 06:06] LABS: BASOPHILS % (AUTO) 0.3 % (0.2-1.0); HEMATOCRIT 41.4 % (36.0-47.0); LYMPHOCYTES # (AUTO) 0.3 X10^3/uL (1.3-2.9); LYMPHOCYTES % (AUTO) 3.9 % (21.0-51.0); MEAN CORPUSCULAR HEMOGLOBIN 27.8 pg (27.0-34.0); MEAN CORPUSCULAR HGB CONC 33.8 g/dL (33.0-35.0); MEAN CORPUSCULAR VOLUME 82.4 fL (80.0-100.0); MEAN PLATELET VOLUME 8.4 fL (7.4-11.0); MONOCYTES # (AUTO) 0.6 x10^3/uL (0.3-0.8); NEUTROPHILS % (AUTO) 87.8 % (42.0-75.0); PLATELET COUNT 204 X10^3/uL (150.0-450.0); RED BLOOD COUNT 5.03 X10^6/uL (3.5-5.4); RED CELL DISTRIBUTION WIDTH 14.2 % (11.6-16.5)
[2020-11-22] MEDS: HumuLIN R SUBCUT PRN ×4 (06:29→22:51)
[2020-11-22 06:38] LABS: ALANINE AMINOTRANSFERASE 58 Units/L (12-78); ALBUMIN 2.2 g/dL (3.4-5.0); ALKALINE PHOSPHATASE 72 Units/L (46-116); ASPARTATE AMINO TRANSFERASE 15 Units/L (15-37); BLOOD UREA NITROGEN 29 mg/dL (7-18); CALCIUM 8.1 mg/dL (8.5-10.1); CARBON DIOXIDE 27.9 mmol/L (21-32); CHLORIDE 102 mmol/L (98-107); COR CA(FOR HYPOALB) 9.5 mg/dL (8.5-10.1); COR NA(FOR HYPERGLY) 142 mmol/L (136-145); CREATININE 0.82 mg/dL (0.55-1.02); SODIUM 137 mmol/L (136-145); eGFR NON BLACK RACES > 60 (>60)
[2020-11-22] MEDS ORDERED: ZESTRIL TAB 20 MG ONE (08:37)
[2020-11-22] MEDS: DIFLUCAN 200 MG IV PREMIX* 200 MG/100 ML BAG IV SCH (10:03)
[2020-11-22] MEDS: PROTONIX INJ 40 MG VIAL IVP SCH ×2 (10:03→22:44)
[2020-11-22] MEDS: ZESTRIL TAB 20 MG PO SCH (10:04)
[2020-11-22] MEDS: LOVENOX INJ 40 MG SYR SC SCH (10:16)
[2020-11-22] MEDS: BACTROBAN TOPICAL OINT TOP SCH ×2 (10:20→22:51)
--- NOTE | 2020-11-22 10:25 | RAD ---
HISTORYCOVID PNEUMONIA, HYPOXIA HX: HTN, BREAST CANCERSTUDYCHEST, 1 [id number]/22/2021FINDINGSThe trachea is midline. Stable cardiomegaly. There is again seen interstitial and alveolar radiopacities with ground-glass radiopacities involving the midlung zones. There is elevation of the right diaphragm with also patchy radiopacities at the right base. No pneumothorax or pleural effusions. No significant interval change.IMPRESSIONStable bilateral interstitial and ground-glass radiopacities. Unchanged elevation of the right diaphragm.Electronically signed by: Dory Britt (Nov 22, 2020 10:24:12)
[2020-11-22] MEDS: ZITHROMAX TAB 250 MG PO SCH (11:24)
[2020-11-22] MEDS: LEVAQUIN PREMIX IV 500 MG 500 MG/100 ML BAG IV SCH (11:24)
[2020-11-22] MEDS ORDERED: TORADOL 30 MG VIAL IVP PRN (17:35)
--- NOTE | 2020-11-22 17:35 | PCM.PROG ---
Progress Note - Progress Note for Day of Date of Exam: 11/21/20 - Subjective Subjective: The patient is a 50-year-old white female who is being treated for COVID-19 pneumonia and hypoxia. She has been on heated high flow and has received Remdesivir, corticosteroids, IV antibiotics, and she is also on Diflucan and Nystatin for oral thrush. She did have a small area abscess that wa s draining yesterday. A wound culture was obtained. We are just using topical Mupirocin. She did not have an ABG this morning. The patient refused just because they were having a difficult time and she had a bad experience with on collection. The patients white blood cell count is stable. Renal function stable. - Past Medical Family Social History Past Med/Fam/Surg Hx: No changes since H&P Allergies: Allergies shellfish derived Allergy (Verified 11/12/20 15:09) - Review of Systems ROS: No change since H&P - Vital Signs and I&O's Vital Signs: Temperature 97.5 F Pulse Rate [Left Brachial] 98 Pulse Rate 85 Respiratory Rate 20 Blood Pressure [Left Arm] 111/69 Blood Pressure [Right Arm] 118/65 Blood Pressure 129/78 O2 Sat by Pulse Oximetry 91 Intake and Output: Intake & Output 11/20/20 11/21/20 11/22/20 11/23/20 11:59 11:59 11:59 11:59 Intake Total 1460 / 1460 2140 / 2140 2822 / 2822 1120 / 1120 Balance 1460 / 1460 2140 / 2140 2822 / 2822 1120 / 1120 - Physical Exam Oriented: Normal Eyes: Normal Ear: Normal Nose: Normal Throat: Dry Respiratory: Diminished, Wheezes Cardiovascular: Normal : Normal Auscultation: Bowel Sounds: Normal Tenderness: Normal Skin: Decreased Turgur Musculoskeletal: Normal Psychiatric: Normal Mood Description: Calm Speech Pattern: Clear, Appropriate - Laboratory and Diagnostics Result Diagrams: 11/22/20 05:40 11/22/20 05:40 Labs: 11/18/20 17:33 Groin Wound Gram Stain - Final 11/18/20 17:33 Groin Wound Culture - Final Escherichia Coli Pseudomonas Aeruginosa 11/14/20 07:30 Blood Blood Culture - Final 11/14/20 07:24 Blood Blood Culture - Final Laboratory WBC 8.0 X10^3/uL (3.6-10.0) 11/22/20 05:40 RBC 5.03 X10^6/uL (3.5-5.4) 11/22/20 05:40 Hgb 14.0 g/dL (12.0-16.0) 11/22/20 05:40 Hct 41.4 % (36.0-47.0) 11/22/20 05:40 MCV 82.4 fL (80.0-100.0) 11/22/20 05:40 MCH 27.8 pg (27.0-34.0) 11/22/20 05:40 MCHC 33.8 g/dL (33.0-35.0) 11/22/20 05:40 RDW 14.2 % (11.6-16.5) 11/22/20 05:40 Plt Count 204 X10^3/uL (150.0-450.0) 11/22/20 05:40 Plt Count Comment Adequate (ADEQUATE) 11/19/20 05:19 MPV 8.4 fL (7.4-11.0) 11/22/20 05:40 Neut % (Auto) 87.8 % (42.0-75.0) H 11/22/20 05:40 Lymph % (Auto) 3.9 % (21.0-51.0) L 11/22/20 05:40 [place] % (Auto) 8.0 % (0.0-13.0) 11/22/20 05:40 Eos % (Auto) 0.0 % (0.9-2.9) L 11/22/20 05:40 Baso % (Auto) 0.3 % (0.2-1.0) 11/22/20 05:40 Neut # (Auto) 7.0 x10^3/uL (2.2-4.8) H 11/22/20 05:40 Lymph # (Auto) 0.3 X10^3/uL (1.3-2.9) L 11/22/20 05:40 [place] # (Auto) 0.6 x10^3/uL (0.3-0.8) 11/22/20 05:40 Eos # (Auto) 0.0 x10^3/uL (0.0-0.2) 11/22/20 05:40 Baso # (Auto) 0.0 X10^3/uL (0.0-0.1) 11/22/20 05:40 Absolute Nucleated RBC 0.1 /100WBC 11/22/20 05:40 Total Counted 100 11/19/20 05:19 Neutrophils % (Manual) 87 % (39-76) H 11/19/20 05:19 Band Neutrophils % 4 % (0-10) 11/19/20 05:19 Lymphocytes % (Manual) 4 % (13-43) L 11/19/20 05:19 Monocytes % (Manual) 5 % (4-9) 11/19/20 05:19 Plt Morphology Comment Normal (NORMAL) 11/19/20 05:19 RBC Morphology Normal (NORMAL) 11/19/20 05:19 Microcytosis Slight A 11/17/20 05:45 PT 13.1 SECONDS (11.8-14.3) 11/14/20 07:24 INR Target Range - 11/14/20 07:24 INR 1.04 (0.8-1.3) 11/14/20 07:24 D-Dimer 0.41 ug/ml (0.0-0.57) 11/16/20 09:19 Sample Site Lrad 11/22/20 04:43 ABG pH 7.470 (7.35-7.45) H 11/22/20 04:43 ABG pCO2 36.0 mmHg (35.0-45.0) 11/22/20 04:43 ABG pO2 64.0 mmHg (80.0-100.0) L 11/22/20 04:43 ABG HCO3 26.2 mmol/L (22-26) H 11/22/20 04:43 ABG O2 Saturation 93.0 % (90-100) 11/22/20 04:43 ABG Base Excess 2.6 mmol/L (-2.0-2.0) H 11/22/20 04:43 Justin Test Pos 11/22/20 04:43 A-a Gradient 497.0 mmHg 11/22/20 04:43 FiO2 85.0 11/22/20 04:43 Blood Gas Comments Min well mts 11/22/20 04:43 Sodium 137 mmol/L (136-145) 11/22/20 05:40 Corrected Sodium 142 mmol/L (136-145) 11/22/20 05:40 Potassium 4.3 mmol/L (3.5-5.1) 11/22/20 05:40 Chloride 102 mmol/L (98-107) 11/22/20 05:40 Carbon Dioxide 27.9 mmol/L (21-32) 11/22/20 05:40 BUN 29 mg/dL (7-18) H 11/22/20 05:40 Creatinine 0.82 mg/dL (0.55-1.02) 11/22/20 05:40 Est GFR (MDRD) Af Amer > 60 (>60) 11/22/20 05:40 Est GFR (MDRD) Non-Af > 60 (>60) 11/22/20 05:40 Glucose 316 mg/dL (65-99) H 11/22/20 05:40 POC Glucose (mg/dL) 348 mg/dL (65-99) H 11/22/20 16:47 Hemoglobin A1c 7.6 % 11/14/20 07:24 Calcium 8.1 mg/dL (8.5-10.1) L 11/22/20 05:40 Corrected Calcium 9.5 mg/dL (8.5-10.1) 11/22/20 05:40 Ferritin 2202 ng/mL (8-252) H 11/14/20 07:24 Total Bilirubin 0.40 mg/dL (0.2-1.0) 11/22/20 05:40 AST 15 Units/L (15-37) 11/22/20 05:40 ALT 58 Units/L (12-78) 11/22/20 05:40 Alkaline Phosphatase 72 Units/L (46-116) 11/22/20 05:40 Troponin I < 0.02 ng/mL (0-1.5) 11/14/20 07:24 C-Reactive Protein 2.50 mg/L (0-3.0) 11/19/20 05:19 Total Protein 5.0 g/dL (6.4-8.2) L 11/22/20 05:40 Albumin 2.2 g/dL (3.4-5.0) L 11/22/20 05:40 Globulin 2.8 g/dL (2.5-4.5) 11/22/20 05:40 Albumin/Globulin Ratio 0.8 Ratio (1.1-2.1) L 11/22/20 05:40 - Plan (1) Pneumonia due to COVID-19 virus Status: Acute Plan: ISOLATION COVID UNIT. IV REMDESIVIR, IV SOLU MEDROL, IV HYDRATION, DUO NEBS. CTA ON ADMISSION, LOVENOX SQ. PT, RT. IV ATBX, BC AND SPUTUM CULTURE COLLECTED ON ADMISSION (2) Hypoxia Status: Acute
[2020-11-22] MEDS: SNACK - Diabetic Appropriate PO SCH (20:00)
[2020-11-22] MEDS: BROVANA IN SCH (20:15)
[2020-11-22] MEDS: PULMICORT NEB TX 0.5 MG NEB SCH (20:15)
[2020-11-22] MEDS: LEVEMIR SC SCH (22:44)
[2020-11-23] MEDS: SNACK - Diabetic Appropriate PO SCH (00:04)
[2020-11-23] MEDS: BETADINE SOLN TOP SCH ×3 (00:06→23:33)
[2020-11-23] MEDS: NS IRRIGATION* 1,000 ML IR SCH ×3 (00:08→23:33)
[2020-11-23] MEDS: ROBITUSSIN DM PO SCH ×5 (00:16→21:06)
[2020-11-23] MEDS ORDERED: GLUCOPHAGE ONE ×2 (05:07→16:58)
[2020-11-23] MEDS: GLUCOPHAGE PO SCH ×2 (06:19→17:20)
[2020-11-23] MEDS: HumuLIN R SUBCUT PRN ×4 (06:19→21:07)
[2020-11-23] MEDS: SOLU-Medrol 125 MG VIAL IVP SCH ×3 (06:19→21:06)
[2020-11-23 06:51] LABS: BASOPHILS % (AUTO) 0.2 % (0.2-1.0); HEMATOCRIT 42.3 % (36.0-47.0); HEMOGLOBIN 14.1 g/dL (12.0-16.0); LYMPHOCYTES # (AUTO) 0.3 X10^3/uL (1.3-2.9); LYMPHOCYTES % (AUTO) 4.1 % (21.0-51.0); MEAN CORPUSCULAR HEMOGLOBIN 27.9 pg (27.0-34.0); MEAN CORPUSCULAR HGB CONC 33.4 g/dL (33.0-35.0); MEAN CORPUSCULAR VOLUME 83.4 fL (80.0-100.0); MONOCYTES # (AUTO) 0.3 x10^3/uL (0.3-0.8); NEUTROPHILS # (AUTO) 7.7 x10^3/uL (2.2-4.8); NEUTROPHILS % (AUTO) 91.7 % (42.0-75.0); PLATELET COUNT 192 X10^3/uL (150.0-450.0); RED BLOOD COUNT 5.07 X10^6/uL (3.5-5.4); RED CELL DISTRIBUTION WIDTH 14.2 % (11.6-16.5); WHITE BLOOD COUNT 8.5 X10^3/uL (3.6-10.0)
[2020-11-23 07:29] LABS: ALANINE AMINOTRANSFERASE 53 Units/L (12-78); ALBUMIN 2.4 g/dL (3.4-5.0); ALKALINE PHOSPHATASE 67 Units/L (46-116); ASPARTATE AMINO TRANSFERASE 12 Units/L (15-37); BLOOD UREA NITROGEN 28 mg/dL (7-18); CALCIUM 8.4 mg/dL (8.5-10.1); CARBON DIOXIDE 26.1 mmol/L (21-32); CHLORIDE 102 mmol/L (98-107); COR CA(FOR HYPOALB) 9.7 mg/dL (8.5-10.1); COR NA(FOR HYPERGLY) 142 mmol/L (136-145); CREATININE 0.72 mg/dL (0.55-1.02); SODIUM 137 mmol/L (136-145); TOTAL PROTEIN 5.1 g/dL (6.4-8.2); eGFR NON BLACK RACES > 60 (>60)
[2020-11-23 07:48] LABS: BAND NEUTROPHILS % 1 % (0-10)
[2020-11-23 07:49] LABS: PLATELET MORPHOLOGY COMMENT NORMAL (NORMAL)
--- NOTE | 2020-11-23 08:11 | RAD ---
HISTORYCOVID, SOB HX: HTN, BREAST CANCERSTUDYCHEST, 1 [id number]/24/2021FINDINGSThe trachea is midline. There is bilateral elevation of the diaphragms. Stable heart size. There is again seen enlargement of the aortic knobThere bilateral diffuse interstitial and alveolar radiopacities there has been mild interval worsening in the left lung and right upper lobe. There is no evidence of effusions or pneumothorax.IMPRESSIONBilateral alveolar and interstitial radiopacities with mild interval worsening in the left lower lobe and right upper lobe.Electronically signed by: Dory Britt (Nov 23, 2020 08:09:36)
[2020-11-23] MEDS ORDERED: ZESTRIL TAB 20 MG ONE (08:57)
[2020-11-23] MEDS: BACTROBAN TOPICAL OINT TOP SCH ×2 (09:29→21:05)
[2020-11-23] MEDS: LEVAQUIN PREMIX IV 500 MG 500 MG/100 ML BAG IV SCH (09:30)
[2020-11-23] MEDS: DIFLUCAN 200 MG IV PREMIX* 200 MG/100 ML BAG IV SCH (09:30)
[2020-11-23] MEDS: PROTONIX INJ 40 MG VIAL IVP SCH ×2 (09:31→21:05)
[2020-11-23] MEDS: LOVENOX INJ 40 MG SYR SC SCH (09:31)
[2020-11-23] MEDS: ZITHROMAX TAB 250 MG PO SCH (09:32)
[2020-11-23] MEDS: ZESTRIL TAB 20 MG PO SCH (09:32)
[2020-11-23] MEDS: BROVANA IN SCH ×2 (09:57→20:40)
[2020-11-23] MEDS: PULMICORT NEB TX 0.5 MG NEB SCH ×2 (09:57→20:40)
[2020-11-23] MEDS: MAGIC MOUTHWASH MT SCH ×3 (12:35→23:32)
[2020-11-23] MEDS: NYSTATIN POWDER TOP SCH ×2 (12:35→21:06)
[2020-11-23] MEDS: MAGIC MOUTHWASH MT PRN (17:23)
[2020-11-23] MEDS: LEVEMIR SC SCH (21:07)
[2020-11-24] MEDS: TYLENOL 325 MG TAB PO PRN (00:47)
[2020-11-24] MEDS ORDERED: GLUCOPHAGE ONE ×2 (05:00→17:23)
[2020-11-24] MEDS: HumuLIN R SUBCUT PRN ×3 (05:36→20:42)
[2020-11-24] MEDS: SOLU-Medrol 125 MG VIAL IVP SCH ×3 (05:36→22:05)
[2020-11-24 06:20] LABS: BASOPHILS % (AUTO) 0.3 % (0.2-1.0); HEMATOCRIT 42.3 % (36.0-47.0); HEMOGLOBIN 14.2 g/dL (12.0-16.0); LYMPHOCYTES # (AUTO) 0.4 X10^3/uL (1.3-2.9); LYMPHOCYTES % (AUTO) 4.6 % (21.0-51.0); MEAN CORPUSCULAR HEMOGLOBIN 27.9 pg (27.0-34.0); MEAN CORPUSCULAR HGB CONC 33.5 g/dL (33.0-35.0); MEAN CORPUSCULAR VOLUME 83.2 fL (80.0-100.0); MEAN PLATELET VOLUME 9.2 fL (7.4-11.0); MONOCYTES # (AUTO) 0.6 x10^3/uL (0.3-0.8); MONOCYTES % (AUTO) 7.5 % (0.0-13.0); NEUTROPHILS # (AUTO) 7.3 x10^3/uL (2.2-4.8); NEUTROPHILS % (AUTO) 87.6 % (42.0-75.0); PLATELET COUNT 184 X10^3/uL (150.0-450.0); RED BLOOD COUNT 5.08 X10^6/uL (3.5-5.4); RED CELL DISTRIBUTION WIDTH 14.4 % (11.6-16.5); WHITE BLOOD COUNT 8.4 X10^3/uL (3.6-10.0)
[2020-11-24] MEDS: GLUCOPHAGE PO SCH ×2 (06:35→17:24)
[2020-11-24 06:58] LABS: ALANINE AMINOTRANSFERASE 62 Units/L (12-78); ALBUMIN 2.3 g/dL (3.4-5.0); ALKALINE PHOSPHATASE 68 Units/L (46-116); ASPARTATE AMINO TRANSFERASE 15 Units/L (15-37); BLOOD UREA NITROGEN 25 mg/dL (7-18); CALCIUM 8.3 mg/dL (8.5-10.1); CARBON DIOXIDE 22.6 mmol/L (21-32); CHLORIDE 103 mmol/L (98-107); COR CA(FOR HYPOALB) 9.7 mg/dL (8.5-10.1); COR NA(FOR HYPERGLY) 140 mmol/L (136-145); CREATININE 0.74 mg/dL (0.55-1.02); SODIUM 136 mmol/L (136-145); TOTAL PROTEIN 5.2 g/dL (6.4-8.2); eGFR NON BLACK RACES > 60 (>60)
--- NOTE | 2020-11-24 07:32 | RAD ---
HISTORYShortness of breathSTUDYChest AP [id number]/25/2021FINDINGSHeart size is normal. Siobhan are normal. Lungs are somewhat better inflated than on the prior examination but still hypoinflated. Diffuse bilateral interstitial, ground -glass, and alveolar infiltrates are unchanged. Pleural effusions or pneumothoraces are identified. B john thorax is unremarkable.IMPRESSIONImproved aeration of both lungs however they remain hypoinflated .No change diffuse bilateral interstitial, ground-glass, and alveolar infiltratesElectronically sy d by: KEVYN PAK (Nov 24, 2020 07:29:47)
[2020-11-24] MEDS: BROVANA IN SCH ×3 (08:13→20:27)
[2020-11-24] MEDS: PULMICORT NEB TX 0.5 MG NEB SCH ×2 (08:14→20:27)
[2020-11-24] MEDS ORDERED: ZESTRIL TAB 20 MG ONE (09:54)
[2020-11-24] MEDS: BACTROBAN TOPICAL OINT TOP SCH ×2 (10:02→20:43)
[2020-11-24] MEDS: BETADINE SOLN TOP SCH ×2 (10:02→20:44)
[2020-11-24] MEDS: LEVAQUIN PREMIX IV 500 MG 500 MG/100 ML BAG IV SCH (10:03)
[2020-11-24] MEDS: MAGIC MOUTHWASH MT SCH ×4 (10:03→20:44)
[2020-11-24] MEDS: DIFLUCAN 200 MG IV PREMIX* 200 MG/100 ML BAG IV SCH (10:03)
[2020-11-24] MEDS: NS IRRIGATION* 1,000 ML IR SCH ×2 (10:04→20:44)
[2020-11-24] MEDS: NYSTATIN POWDER TOP SCH ×2 (10:05→20:44)
[2020-11-24] MEDS: ROBITUSSIN DM PO SCH ×4 (10:05→20:44)
[2020-11-24] MEDS: ZESTRIL TAB 20 MG PO SCH (10:05)
[2020-11-24] MEDS: ZITHROMAX TAB 250 MG PO SCH (10:05)
[2020-11-24] MEDS: PROTONIX INJ 40 MG VIAL IVP SCH ×2 (10:05→20:43)
[2020-11-24] MEDS: LOVENOX INJ 40 MG SYR SC SCH (11:05)
[2020-11-24] MEDS: LEVEMIR SC SCH (20:43)
[2020-11-24] MEDS: SNACK - Diabetic Appropriate PO SCH (20:43)
[2020-11-25] MEDS ORDERED: GLUCOPHAGE ONE ×2 (04:35→17:35)
[2020-11-25] MEDS: HumuLIN R SUBCUT PRN ×2 (05:59→17:46)
[2020-11-25] MEDS: SOLU-Medrol 125 MG VIAL IVP SCH ×3 (06:00→21:07)
[2020-11-25] MEDS: GLUCOPHAGE PO SCH ×2 (06:00→17:45)
[2020-11-25 07:04] LABS: ALANINE AMINOTRANSFERASE 78 Units/L (12-78); ALBUMIN 2.4 g/dL (3.4-5.0); ALKALINE PHOSPHATASE 80 Units/L (46-116); ASPARTATE AMINO TRANSFERASE 19 Units/L (15-37); BLOOD UREA NITROGEN 24 mg/dL (7-18); CALCIUM 7.9 mg/dL (8.5-10.1); CARBON DIOXIDE 29.1 mmol/L (21-32); CHLORIDE 100 mmol/L (98-107); COR CA(FOR HYPOALB) 9.2 mg/dL (8.5-10.1); COR NA(FOR HYPERGLY) 139 mmol/L (136-145); CREATININE 0.91 mg/dL (0.55-1.02); SODIUM 134 mmol/L (136-145); TOTAL PROTEIN 5.2 g/dL (6.4-8.2); eGFR NON BLACK RACES > 60 (>60)
[2020-11-25 07:10] LABS: BASOPHILS % (AUTO) 0 % (0.2-1.0); HEMOGLOBIN 14.3 g/dL (12.0-16.0); LYMPHOCYTES # (AUTO) 0.2 X10^3/uL (1.3-2.9); LYMPHOCYTES % (AUTO) 3.4 % (21.0-51.0); MEAN CORPUSCULAR HEMOGLOBIN 28.3 pg (27.0-34.0); MEAN CORPUSCULAR HGB CONC 34.1 g/dL (33.0-35.0); MEAN PLATELET VOLUME 9.1 fL (7.4-11.0); MONOCYTES # (AUTO) 0.6 x10^3/uL (0.3-0.8); MONOCYTES % (AUTO) 8.1 % (0.0-13.0); NEUTROPHILS # (AUTO) 6.2 x10^3/uL (2.2-4.8); NEUTROPHILS % (AUTO) 88.5 % (42.0-75.0); PLATELET COUNT 174 X10^3/uL (150.0-450.0); RED BLOOD COUNT 5.05 X10^6/uL (3.5-5.4); RED CELL DISTRIBUTION WIDTH 14.3 % (11.6-16.5); WHITE BLOOD COUNT 7.1 X10^3/uL (3.6-10.0)
[2020-11-25] MEDS ORDERED: ZESTRIL TAB 20 MG ONE (09:07)
[2020-11-25] MEDS: LEVAQUIN PREMIX IV 500 MG 500 MG/100 ML BAG IV SCH (09:12)
[2020-11-25] MEDS: ZITHROMAX TAB 250 MG PO SCH (09:12)
[2020-11-25] MEDS: ZESTRIL TAB 20 MG PO SCH (09:12)
[2020-11-25] MEDS: LOVENOX INJ 40 MG SYR SC SCH (09:12)
[2020-11-25] MEDS: MAGIC MOUTHWASH MT SCH ×4 (09:13→21:08)
[2020-11-25] MEDS: BETADINE SOLN TOP SCH ×2 (09:13→21:08)
[2020-11-25] MEDS: DIFLUCAN 200 MG IV PREMIX* 200 MG/100 ML BAG IV SCH (09:13)
[2020-11-25] MEDS: BACTROBAN TOPICAL OINT TOP SCH ×2 (09:13→21:08)
[2020-11-25] MEDS: NYSTATIN POWDER TOP SCH ×2 (09:14→21:08)
[2020-11-25] MEDS: ROBITUSSIN DM PO SCH ×4 (09:14→21:09)
[2020-11-25] MEDS: NS IRRIGATION* 1,000 ML IR SCH ×2 (09:14→22:32)
[2020-11-25] MEDS: PROTONIX INJ 40 MG VIAL IVP SCH ×2 (09:15→21:07)
[2020-11-25] MEDS: PULMICORT NEB TX 0.5 MG NEB SCH ×2 (09:50→21:30)
[2020-11-25] MEDS: BROVANA IN SCH ×2 (09:50→21:30)
[2020-11-25 11:07] LABS: ABG BASE EXCESS 2.8 mmol/L (-2.0-2.0); ABG HCO3 26.1 mmol/L (22-26)
[2020-11-25 11:08] LABS: ABG ALLEN TEST POS
[2020-11-25] MEDS: LEVEMIR SC SCH (21:06)
[2020-11-25] MEDS: SNACK - Diabetic Appropriate PO SCH (21:06)
[2020-11-26] MEDS ORDERED: GLUCOPHAGE ONE ×2 (04:22→17:49)
[2020-11-26 05:17] LABS: ABG ALLEN TEST POSS; ABG HCO3 27.6 mmol/L (22-26)
[2020-11-26] MEDS: SOLU-Medrol 125 MG VIAL IVP SCH ×3 (05:27→21:07)
[2020-11-26] MEDS: HumuLIN R SUBCUT PRN ×4 (06:03→21:08)
[2020-11-26] MEDS: GLUCOPHAGE PO SCH ×2 (06:03→21:05)
[2020-11-26 07:04] LABS: BASOPHILS % (AUTO) 0.1 % (0.2-1.0); HEMATOCRIT 42.1 % (36.0-47.0); HEMOGLOBIN 14.3 g/dL (12.0-16.0); LYMPHOCYTES # (AUTO) 0.2 X10^3/uL (1.3-2.9); LYMPHOCYTES % (AUTO) 3.2 % (21.0-51.0); MEAN CORPUSCULAR HEMOGLOBIN 28.1 pg (27.0-34.0); MEAN CORPUSCULAR VOLUME 82.6 fL (80.0-100.0); MEAN PLATELET VOLUME 9.4 fL (7.4-11.0); MONOCYTES # (AUTO) 0.4 x10^3/uL (0.3-0.8); MONOCYTES % (AUTO) 5.5 % (0.0-13.0); NEUTROPHILS # (AUTO) 6.8 x10^3/uL (2.2-4.8); NEUTROPHILS % (AUTO) 91.2 % (42.0-75.0); PLATELET COUNT 172 X10^3/uL (150.0-450.0); RED BLOOD COUNT 5.09 X10^6/uL (3.5-5.4); RED CELL DISTRIBUTION WIDTH 14.8 % (11.6-16.5); WHITE BLOOD COUNT 7.4 X10^3/uL (3.6-10.0)
[2020-11-26 07:33] LABS: ALANINE AMINOTRANSFERASE 98 Units/L (12-78); ALBUMIN 2.5 g/dL (3.4-5.0); ALKALINE PHOSPHATASE 84 Units/L (46-116); ASPARTATE AMINO TRANSFERASE 22 Units/L (15-37); BLOOD UREA NITROGEN 23 mg/dL (7-18); CALCIUM 7.8 mg/dL (8.5-10.1); CARBON DIOXIDE 25.7 mmol/L (21-32); CHLORIDE 103 mmol/L (98-107); COR NA(FOR HYPERGLY) 145 mmol/L (136-145); TOTAL PROTEIN 5.4 g/dL (6.4-8.2); eGFR NON BLACK RACES > 60 (>60)
[2020-11-26 07:35] LABS: SODIUM 140 mmol/L (136-145)
[2020-11-26 08:55] LABS: PLATELET MORPHOLOGY COMMENT NORMAL (NORMAL)
--- NOTE | 2020-11-26 09:01 | RAD ---
HISTORYSOBSTUDYPortable AP [id number]/26/2021FINDINGSContinued normal heart size and contour. Similar appearance of scatt ered left lower lung infiltrates. Increasing obscuration of the right diaphragm consistent with progr ession of pneumonia/atelectasis in the adjacent right lower lobe. No pneumothorax or pleural fluid se en.IMPRESSIONPersistent bilateral pneumonia with slight interval progression in the right lower lobe. Electronically signed by: MADALYN ALEXANDER (Nov 26, 2020 08:59:15)
[2020-11-26] MEDS: BROVANA IN SCH ×2 (10:04→21:19)
[2020-11-26] MEDS: PULMICORT NEB TX 0.5 MG NEB SCH ×2 (10:04→21:19)
[2020-11-26] MEDS ORDERED: ZESTRIL TAB 20 MG ONE (10:20)
[2020-11-26] MEDS: DIFLUCAN 200 MG IV PREMIX* 200 MG/100 ML BAG IV SCH (10:29)
[2020-11-26] MEDS: ROBITUSSIN DM PO SCH ×4 (10:30→21:05)
[2020-11-26] MEDS: ZESTRIL TAB 20 MG PO SCH (10:30)
[2020-11-26] MEDS: ZITHROMAX TAB 250 MG PO SCH (10:30)
[2020-11-26] MEDS: PROTONIX INJ 40 MG VIAL IVP SCH ×2 (10:31→21:08)
[2020-11-26] MEDS: LOVENOX INJ 40 MG SYR SC SCH (10:31)
[2020-11-26] MEDS: LEVAQUIN PREMIX IV 500 MG 500 MG/100 ML BAG IV SCH (10:32)
[2020-11-26] MEDS ORDERED: NS 100 ML IV 100 ML ONE ×2 (10:38→13:03)
[2020-11-26] MEDS: BACTROBAN TOPICAL OINT TOP SCH ×2 (10:53→21:07)
[2020-11-26] MEDS: MAGIC MOUTHWASH MT SCH ×4 (10:54→21:22)
[2020-11-26] MEDS: BETADINE SOLN TOP SCH ×2 (10:54→21:06)
[2020-11-26] MEDS: NYSTATIN POWDER TOP SCH ×2 (10:54→21:06)
[2020-11-26] MEDS: NS IRRIGATION* 1,000 ML IR SCH ×2 (10:54→21:06)
--- NOTE | 2020-11-26 14:20 | PCM.PROG ---
Progress Note - Progress Note for Day of Date of Exam: 11/26/20 - Subjective Subjective: The patient is a 50-year-old white female, patient of , who is being treated for COVID-19 pneumonia with hypoxia. She has been on IV antibiotics, respiratory therapy, supplemental oxygen, corticosteroids, and Remdesivir. Today, she is alert and oriented, lying in bed on morning rounds. The patient states that she is feeling better as far as generalized weakness but continues with shortness of breath. She is currently on supplemental oxygen with nasal cannula at 4 liters with an oxygen sats around 87-92%. On examination, She is calm and cooperative. She has on nasal cannula with mild respiratory distress at rest. The patient has bibasilar diminished lung sounds. Mild upper expiratory wheezes. No rales or rhonchi. No cough present this morning. Heart rate is a regular rate and rhythm. Abdomen is soft and non-tender. Bowel sounds are present times all four quadrants. She has no lower extremity edema noted. Her vitals this morning were: 98.0-80-20-90%-143/81. Labs were obtained. Abnormal lab values include the following: BUN 23, GLUCOSE 293, CALCIUM 7.8, ALT 98, TOTA L PROTEIN 5.4, ALBUMIN 2.5. ABG REVEALED: PH 7.480, PC02 37, P02 59, HC03 27.6, 02 SAT 92, BASE EXCESS 4.0, A-A GRADIENT 208, FI02 44.0. CHEST XRAY REVEALED: Persistent bilateral pneumonia with slight interval progression in the right lower lobe. Today, we will continue with IV antibiotics, respiratory therapy, supplemental oxygen, and pulmonary toileting along with corticosteroids and Remdesivir. Aggressive PT/RT. We will follow up with AM labs, chest xray, and ABG. TIME SPENT ON CLINICAL ASSESSMENT, REVIEWING LABS AND IMAGING, DECISION MAKING, AND DOCUMENTATION GREATER THAN 45 MINUTES. - Past Medical Family Social History Past Med/Fam/Surg Hx: No changes since H&P Allergies: Allergies shellfish derived Allergy (Verified 11/12/20 15:09) - Review of Systems ROS: No change since H&P - Vital Signs and I&O's Vital Signs: Temperature 98.0 F Pulse Rate [Left Brachial] 80 Pulse Rate 92 Respiratory Rate 20 Blood Pressure [Left Arm] 143/81 Blood Pressure [Right Arm] 121/80 Blood Pressure 129/78 O2 Sat by Pulse Oximetry 92 Intake and Output: Intake & Output 11/24/20 11/25/20 11/26/20 11/27/20 11:59 11:59 11:59 11:59 Intake Total 2195 / 2195 1867 / 1866 2512 / 2512 Balance 2195 / 2195 1866 / 1866 2512 / 2512 - Physical Exam Oriented: Normal Eyes: Normal Ear: Normal Nose: Normal Throat: Dry Respiratory: Diminished, Wheezes Cardiovascular: Normal : Normal Auscultation: Bowel Sounds: Normal Tenderness: Normal Skin: Decreased Turgur Musculoskeletal: Normal Psychiatric: Normal Mood Description: Calm Speech Pattern: Clear, Appropriate - Laboratory and Diagnostics Result Diagrams: 11/26/20 05:35 11/26/20 05:35 Labs: 11/18/20 17:33 Groin Wound Gram Stain - Final 11/18/20 17:33 Groin Wound Culture - Final Escherichia Coli Pseudomonas Aeruginosa 11/14/20 07:30 Blood Blood Culture - Final 11/14/20 07:24 Blood Blood Culture - Final Laboratory WBC 7.4 X10^3/uL (3.6-10.0) 11/26/20 05:35 RBC 5.09 X10^6/uL (3.5-5.4) 11/26/20 05:35 Hgb 14.3 g/dL (12.0-16.0) 11/26/20 05:35 Hct 42.1 % (36.0-47.0) 11/26/20 05:35 MCV 82.6 fL (80.0-100.0) 11/26/20 05:35 MCH 28.1 pg (27.0-34.0) 11/26/20 05:35 MCHC 34.0 g/dL (33.0-35.0) 11/26/20 05:35 RDW 14.8 % (11.6-16.5) 11/26/20 05:35 Plt Count 172 X10^3/uL (150.0-450.0) 11/26/20 05:35 Plt Count Comment Adequate (ADEQUATE) 11/26/20 05:35 MPV 9.4 fL (7.4-11.0) 11/26/20 05:35 Neut % (Auto) 91.2 % (42.0-75.0) H 11/26/20 05:35 Lymph % (Auto) 3.2 % (21.0-51.0) L 11/26/20 05:35 [place] % (Auto) 5.5 % (0.0-13.0) 11/26/20 05:35 Eos % (Auto) 0.0 % (0.9-2.9) L 11/26/20 05:35 Baso % (Auto) 0.1 % (0.2-1.0) L 11/26/20 05:35 Neut # (Auto) 6.8 x10^3/uL (2.2-4.8) H 11/26/20 05:35 Lymph # (Auto) 0.2 X10^3/uL (1.3-2.9) L 11/26/20 05:35 [place] # (Auto) 0.4 x10^3/uL (0.3-0.8) 11/26/20 05:35 Eos # (Auto) 0.0 x10^3/uL (0.0-0.2) 11/26/20 05:35 Baso # (Auto) 0.0 X10^3/uL (0.0-0.1) 11/26/20 05:35 Absolute Nucleated RBC 0.1 /100WBC 11/26/20 05:35 Total Counted 100 11/26/20 05:35 Neutrophils % (Manual) 96 % (39-76) H 11/26/20 05:35 Band Neutrophils % 1 % (0-10) 11/23/20 05:52 Lymphocytes % (Manual) 1 % (13-43) L 11/26/20 05:35 Monocytes % (Manual) 3 % (4-9) L 11/26/20 05:35 Plt Morphology Comment Normal (NORMAL) 11/26/20 05:35 RBC Morphology Normal (NORMAL) 11/26/20 05:35 Microcytosis Slight A 11/17/20 05:45 PT 13.1 SECONDS (11.8-14.3) 11/14/20 07:24 INR Target Range - 11/14/20 07:24 INR 1.04 (0.8-1.3) 11/14/20 07:24 D-Dimer 0.42 ug/ml (0.0-0.57) 11/26/20 05:00 Sample Site L rad 11/26/20 05:10 ABG pH 7.480 (7.35-7.45) H 11/26/20 05:10 ABG pCO2 37.0 mmHg (35.0-45.0) 11/26/20 05:10 ABG pO2 59.0 mmHg (80.0-100.0) L 11/26/20 05:10 ABG HCO3 27.6 mmol/L (22-26) H 11/26/20 05:10 ABG O2 Saturation 92.0 % (90-100) 11/26/20 05:10 ABG Base Excess 4.0 mmol/L (-2.0-2.0) H 11/26/20 05:10 Justin Test Poss 11/26/20 05:10 A-a Gradient 208.0 mmHg 11/26/20 05:10 FiO2 44.0 11/26/20 05:10 Blood Gas Comments Min well kb 11/26/20 05:10 Sodium 140 mmol/L (136-145) 11/26/20 05:35 Corrected Sodium 145 mmol/L (136-145) 11/26/20 05:35 Potassium 4.0 mmol/L (3.5-5.1) 11/26/20 05:35 Chloride 103 mmol/L (98-107) 11/26/20 05:35 Carbon Dioxide 25.7 mmol/L (21-32) 11/26/20 05:35 BUN 23 mg/dL (7-18) H 11/26/20 05:35 Creatinine 0.70 mg/dL (0.55-1.02) 11/26/20 05:35 Est GFR (MDRD) Af Amer > 60 (>60) 11/26/20 05:35 Est GFR (MDRD) Non-Af > 60 (>60) 11/26/20 05:35 Glucose 293 mg/dL (65-99) H 11/26/20 05:35 POC Glucose (mg/dL) 240 mg/dL (65-99) H 11/26/20 11:48 Hemoglobin A1c 7.6 % 11/14/20 07:24 Calcium 7.8 mg/dL (8.5-10.1) L 11/26/20 05:35 Corrected Calcium 9.0 mg/dL (8.5-10.1) 11/26/20 05:35 Ferritin 2202 ng/mL (8-252) H 11/14/20 07:24 Total Bilirubin 0.40 mg/dL (0.2-1.0) 11/26/20 05:35 AST 22 Units/L (15-37) 11/26/20 05:35 ALT 98 Units/L (12-78) H 11/26/20 05:35 Alkaline Phosphatase 84 Units/L (46-116) 11/26/20 05:35 Troponin I < 0.02 ng/mL (0-1.5) 11/14/20 07:24 C-Reactive Protein 1.60 mg/L (0-3.0) 11/26/20 05:35 B-Natriuretic Peptide 31.0 pg/mL (0-79) 11/26/20 05:35 Total Protein 5.4 g/dL (6.4-8.2) L 11/26/20 05:35 Albumin 2.5 g/dL (3.4-5.0) L 11/26/20 05:35 Globulin 2.9 g/dL (2.5-4.5) 11/26/20 05:35 Albumin/Globulin Ratio 0.9 Ratio (1.1-2.1) L 11/26/20 05:35 - Plan (1) Pneumonia due to COVID-19 virus Status: Acute Plan: ISOLATION COVID UNIT. IV REMDESIVIR, IV SOLU MEDROL, IV HYDRATION, DUO NEBS, LOVENOX SQ. PT, RT. IV ATBX, BC AND SPUTUM CULTURE COLLECTED ON ADMISSION (2) Hypoxia Status: Acute (3) Diabetes Status: Chronic Qualifiers: Diabetes mellitus type: type 2 Diabetes mellitus termite control service representative insulin use: unspecified senior care insulin use status Diabetes mellitus complication status: with hyperglycemia Qualified Code(s): E11.65 - Type 2 diabetes mellitus with hyperglycemia (4) HTN (hypertension) Status: Chronic Qualifiers: Hypertension type: primary hypertension Qualified Code(s): I10 - Essential (primary) hypertension
[2020-11-26] MEDS: LEVEMIR SC SCH (21:06)
[2020-11-26] MEDS: SNACK - Diabetic Appropriate PO SCH (21:07)
[2020-11-27] MEDS ORDERED: GLUCOPHAGE ONE ×2 (04:48→17:14)
[2020-11-27] MEDS: SOLU-Medrol 125 MG VIAL IVP SCH ×3 (05:30→21:26)
[2020-11-27] MEDS: HumuLIN R SUBCUT PRN ×4 (06:07→21:26)
[2020-11-27] MEDS: GLUCOPHAGE PO SCH ×2 (06:07→17:37)
[2020-11-27 06:26] LABS: BASOPHILS % (AUTO) 0.1 % (0.2-1.0); HEMATOCRIT 39.6 % (36.0-47.0); HEMOGLOBIN 13.4 g/dL (12.0-16.0); LYMPHOCYTES # (AUTO) 0.3 X10^3/uL (1.3-2.9); LYMPHOCYTES % (AUTO) 4.7 % (21.0-51.0); MEAN CORPUSCULAR HEMOGLOBIN 28.5 pg (27.0-34.0); MEAN CORPUSCULAR HGB CONC 33.9 g/dL (33.0-35.0); MEAN PLATELET VOLUME 9.6 fL (7.4-11.0); MONOCYTES # (AUTO) 0.5 x10^3/uL (0.3-0.8); MONOCYTES % (AUTO) 7.6 % (0.0-13.0); NEUTROPHILS # (AUTO) 5.9 x10^3/uL (2.2-4.8); NEUTROPHILS % (AUTO) 87.6 % (42.0-75.0); PLATELET COUNT 140 X10^3/uL (150.0-450.0); RED BLOOD COUNT 4.71 X10^6/uL (3.5-5.4); RED CELL DISTRIBUTION WIDTH 14.6 % (11.6-16.5); WHITE BLOOD COUNT 6.7 X10^3/uL (3.6-10.0)
[2020-11-27 06:52] LABS: ALANINE AMINOTRANSFERASE 84 Units/L (12-78); ALBUMIN 2.4 g/dL (3.4-5.0); ALKALINE PHOSPHATASE 71 Units/L (46-116); ASPARTATE AMINO TRANSFERASE 12 Units/L (15-37); BLOOD UREA NITROGEN 21 mg/dL (7-18); CALCIUM 8.1 mg/dL (8.5-10.1); CARBON DIOXIDE 27.6 mmol/L (21-32); CHLORIDE 104 mmol/L (98-107); COR CA(FOR HYPOALB) 9.4 mg/dL (8.5-10.1); COR NA(FOR HYPERGLY) 143 mmol/L (136-145); CREATININE 0.63 mg/dL (0.55-1.02); SODIUM 140 mmol/L (136-145); eGFR NON BLACK RACES > 60 (>60)
--- NOTE | 2020-11-27 06:57 | RAD ---
HISTORYCOVID-19 pneumoniaSTUDYPortable AP [id number] normal heart size. Persistent and increasing diffuse bilateral pulmonary infiltrates. No large pleural effusion or complicating pneumothorax seen.IMPRESSIONSlight interval progression of bilateral pneumonia.Electronically signed by: MADALYN ALEXANDER (Nov 27, 2020 06:54:54)
[2020-11-27] MEDS ORDERED: ZESTRIL TAB 20 MG ONE (07:53)
[2020-11-27] MEDS: PULMICORT NEB TX 0.5 MG NEB SCH ×2 (09:15→20:26)
[2020-11-27] MEDS: BROVANA IN SCH ×2 (09:15→20:26)
[2020-11-27] MEDS: BACTROBAN TOPICAL OINT TOP SCH ×2 (09:22→21:23)
[2020-11-27] MEDS: ZESTRIL TAB 20 MG PO SCH (09:23)
[2020-11-27] MEDS: BETADINE SOLN TOP SCH ×2 (09:23→21:24)
[2020-11-27] MEDS: ZITHROMAX TAB 250 MG PO SCH (09:23)
[2020-11-27] MEDS: PROTONIX INJ 40 MG VIAL IVP SCH ×2 (09:23→21:26)
[2020-11-27] MEDS: NYSTATIN POWDER TOP SCH ×2 (09:24→21:24)
[2020-11-27] MEDS: MAGIC MOUTHWASH MT SCH ×4 (09:24→21:24)
[2020-11-27] MEDS: ROBITUSSIN DM PO SCH ×4 (09:24→21:26)
[2020-11-27] MEDS: NS IRRIGATION* 1,000 ML IR SCH ×2 (09:24→21:25)
[2020-11-27] MEDS: LEVAQUIN PREMIX IV 500 MG 500 MG/100 ML BAG IV SCH (09:25)
[2020-11-27] MEDS: LOVENOX INJ 40 MG SYR SC SCH (09:25)
[2020-11-27] MEDS: DIFLUCAN 200 MG IV PREMIX* 200 MG/100 ML BAG IV SCH (09:26)
[2020-11-27] MEDS: SNACK - Diabetic Appropriate PO SCH (20:23)
[2020-11-27] MEDS: LEVEMIR SC SCH (21:24)
--- NOTE | 2020-11-27 23:27 | PCM.PROG ---
Progress Note - Progress Note for Day of Date of Exam: 11/27/20 - Subjective Subjective: The patient is a 50-year-old white female, patient of , who is being treated for COVID-19 pneumonia with hypoxia. She has been on IV antibiotics, respiratory therapy, supplemental oxygen, corticosteroids, and Remdesivir. Today, she is alert and oriented, lying in bed on morning rounds. The patient reports improvement in shortness of breath and weakness today. She is currently on supplemental oxygen with nasal cannula at 3 liters with an oxygen sats around 90-93%. On examination, She is calm and cooperative. She has on nasal cannula with mild respiratory distress at rest. The patient has bibasilar diminished lung sounds. No cough present this morning. Heart rate is a regular rate and rhythm. Abdomen is soft and non-tender. Bowel sounds are present times all four quadrants. She has no lower extremity edema noted. Her vitals this morning were: 97.3-76-20-91%-122/71. Labs were obtained. Abnormal lab values include the following: PLT COUNT 140, BUN 21, GLUCOSE 237, CALCIUM 8.1, AST 12, ALT 84, TOTAL PROTEIN 5.0, ALBUMIN 2.4. SHE REFUSED ABG THIS MORNING. CHEST XRAY REVEALED: Slight interval progression of bilateral pneumonia. We will continue with current plan of care today. Otherwise, We will follow up with AM labs, chest xray, ABG, and continue to monitor. TIME SPENT ON CLINICAL ASSESSMENT, REVIEWING LABS AND IMAGING, DECISION MAKING, AND DOCUMENTATION GREATER THAN 45 MINUTES. - Past Medical Family Social History Past Med/Fam/Surg Hx: No changes since H&P Allergies: Allergies shellfish derived Allergy (Verified 11/12/20 15:09) - Review of Systems ROS: No change since H&P - Vital Signs and I&O's Vital Signs: Temperature 97.6 F Pulse Rate [Left Brachial] 86 Pulse Rate 84 Respiratory Rate 20 Blood Pressure [Left Arm] 116/75 Blood Pressure [Right Arm] 122/71 Blood Pressure 129/78 O2 Sat by Pulse Oximetry 90 Intake and Output: Intake & Output 11/25/20 11/26/20 11/27/20 11/28/20 11:59 11:59 11:59 11:59 Intake Total 1866 / 1866 2512 / 2512 3059 / 3059 560 / 560 Balance 1867 / 1867 2512 / 2512 3059 / 3059 560 / 560 - Physical Exam Oriented: Normal Eyes: Normal Ear: Normal Nose: Normal Throat: Dry Respiratory: Diminished Cardiovascular: Normal : Normal Auscultation: Bowel Sounds: Normal Tenderness: Normal Skin: Decreased Turgur Musculoskeletal: Normal Psychiatric: Normal Mood Description: Calm Speech Pattern: Clear, Appropriate - Laboratory and Diagnostics Result Diagrams: 11/27/20 05:27 11/27/20 05:27 Labs: 11/18/20 17:33 Groin Wound Gram Stain - Final 11/18/20 17:33 Groin Wound Culture - Final Escherichia Coli Pseudomonas Aeruginosa 11/14/20 07:30 Blood Blood Culture - Final 11/14/20 07:24 Blood Blood Culture - Final Laboratory WBC 6.7 X10^3/uL (3.6-10.0) 11/27/20 05:27 RBC 4.71 X10^6/uL (3.5-5.4) 11/27/20 05:27 Hgb 13.4 g/dL (12.0-16.0) 11/27/20 05:27 Hct 39.6 % (36.0-47.0) 11/27/20 05:27 MCV 84.0 fL (80.0-100.0) 11/27/20 05:27 MCH 28.5 pg (27.0-34.0) 11/27/20 05:27 MCHC 33.9 g/dL (33.0-35.0) 11/27/20 05:27 RDW 14.6 % (11.6-16.5) 11/27/20 05:27 Plt Count 140 X10^3/uL (150.0-450.0) L 11/27/20 05:27 Plt Count Comment Adequate (ADEQUATE) 11/26/20 05:35 MPV 9.6 fL (7.4-11.0) 11/27/20 05:27 Neut % (Auto) 87.6 % (42.0-75.0) H 11/27/20 05:27 Lymph % (Auto) 4.7 % (21.0-51.0) L 11/27/20 05:27 [place] % (Auto) 7.6 % (0.0-13.0) 11/27/20 05:27 Eos % (Auto) 0.0 % (0.9-2.9) L 11/27/20 05:27 Baso % (Auto) 0.1 % (0.2-1.0) L 11/27/20 05:27 Neut # (Auto) 5.9 x10^3/uL (2.2-4.8) H 11/27/20 05:27 Lymph # (Auto) 0.3 X10^3/uL (1.3-2.9) L 11/27/20 05:27 [place] # (Auto) 0.5 x10^3/uL (0.3-0.8) 11/27/20 05:27 Eos # (Auto) 0.0 x10^3/uL (0.0-0.2) 11/27/20 05:27 Baso # (Auto) 0.0 X10^3/uL (0.0-0.1) 11/27/20 05:27 Absolute Nucleated RBC 0.0 /100WBC 11/27/20 05:27 Total Counted 100 11/26/20 05:35 Neutrophils % (Manual) 96 % (39-76) H 11/26/20 05:35 Band Neutrophils % 1 % (0-10) 11/23/20 05:52 Lymphocytes % (Manual) 1 % (13-43) L 11/26/20 05:35 Monocytes % (Manual) 3 % (4-9) L 11/26/20 05:35 Plt Morphology Comment Normal (NORMAL) 11/26/20 05:35 RBC Morphology Normal (NORMAL) 11/26/20 05:35 Microcytosis Slight A 11/17/20 05:45 PT 13.1 SECONDS (11.8-14.3) 11/14/20 07:24 INR Target Range - 11/14/20 07:24 INR 1.04 (0.8-1.3) 11/14/20 07:24 D-Dimer 0.22 ug/ml (0.0-0.57) 11/27/20 05:27 Sample Site L rad 11/26/20 05:10 ABG pH 7.480 (7.35-7.45) H 11/26/20 05:10 ABG pCO2 37.0 mmHg (35.0-45.0) 11/26/20 05:10 ABG pO2 59.0 mmHg (80.0-100.0) L 11/26/20 05:10 ABG HCO3 27.6 mmol/L (22-26) H 11/26/20 05:10 ABG O2 Saturation 92.0 % (90-100) 11/26/20 05:10 ABG Base Excess 4.0 mmol/L (-2.0-2.0) H 11/26/20 05:10 Justin Test Poss 11/26/20 05:10 A-a Gradient 208.0 mmHg 11/26/20 05:10 FiO2 44.0 11/26/20 05:10 Blood Gas Comments Min well kb 11/26/20 05:10 Sodium 140 mmol/L (136-145) 11/27/20 05:27 Corrected Sodium 143 mmol/L (136-145) 11/27/20 05:27 Potassium 4.1 mmol/L (3.5-5.1) 11/27/20 05:27 Chloride 104 mmol/L (98-107) 11/27/20 05:27 Carbon Dioxide 27.6 mmol/L (21-32) 11/27/20 05:27 BUN 21 mg/dL (7-18) H 11/27/20 05:27 Creatinine 0.63 mg/dL (0.55-1.02) 11/27/20 05:27 Est GFR (MDRD) Af Amer > 60 (>60) 11/27/20 05:27 Est GFR (MDRD) Non-Af > 60 (>60) 11/27/20 05:27 Glucose 237 mg/dL (65-99) H 11/27/20 05:27 POC Glucose (mg/dL) 365 mg/dL (65-99) H 11/27/20 21:04 Hemoglobin A1c 7.6 % 11/14/20 07:24 Calcium 8.1 mg/dL (8.5-10.1) L 11/27/20 05:27 Corrected Calcium 9.4 mg/dL (8.5-10.1) 11/27/20 05:27 Ferritin 2202 ng/mL (8-252) H 11/14/20 07:24 Total Bilirubin 0.40 mg/dL (0.2-1.0) 11/27/20 05:27 AST 12 Units/L (15-37) L 11/27/20 05:27 ALT 84 Units/L (12-78) H 11/27/20 05:27 Alkaline Phosphatase 71 Units/L (46-116) 11/27/20 05:27 Troponin I < 0.02 ng/mL (0-1.5) 11/14/20 07:24 C-Reactive Protein 2.60 mg/L (0-3.0) 11/27/20 05:27 B-Natriuretic Peptide 29.1 pg/mL (0-79) 11/27/20 05:27 Total Protein 5.0 g/dL (6.4-8.2) L 11/27/20 05:27 Albumin 2.4 g/dL (3.4-5.0) L 11/27/20 05:27 Globulin 2.6 g/dL (2.5-4.5) 11/27/20 05:27 Albumin/Globulin Ratio 0.9 Ratio (1.1-2.1) L 11/27/20 05:27 - Plan (1) Pneumonia due to COVID-19 virus Status: Acute Plan: ISOLATION COVID UNIT. IV REMDESIVIR, IV SOLU MEDROL, IV HYDRATION, DUO NEBS, LOVENOX SQ. PT, RT. 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
[2020-11-28] MEDS ORDERED: GLUCOPHAGE ONE (04:40)
[2020-11-28] MEDS: SOLU-Medrol 125 MG VIAL IVP SCH (05:44)
[2020-11-28] MEDS: HumuLIN R SUBCUT PRN ×2 (05:51→12:05)
[2020-11-28 07:31] LABS: BASOPHILS % (AUTO) 0.2 % (0.2-1.0); HEMATOCRIT 40.4 % (36.0-47.0); HEMOGLOBIN 13.7 g/dL (12.0-16.0); LYMPHOCYTES # (AUTO) 0.3 X10^3/uL (1.3-2.9); LYMPHOCYTES % (AUTO) 5.2 % (21.0-51.0); MEAN CORPUSCULAR HEMOGLOBIN 28.4 pg (27.0-34.0); MEAN CORPUSCULAR HGB CONC 33.8 g/dL (33.0-35.0); MEAN CORPUSCULAR VOLUME 84.1 fL (80.0-100.0); MEAN PLATELET VOLUME 9.3 fL (7.4-11.0); MONOCYTES # (AUTO) 0.5 x10^3/uL (0.3-0.8); MONOCYTES % (AUTO) 7.1 % (0.0-13.0); NEUTROPHILS # (AUTO) 5.8 x10^3/uL (2.2-4.8); NEUTROPHILS % (AUTO) 87.5 % (42.0-75.0); PLATELET COUNT 140 X10^3/uL (150.0-450.0); RED CELL DISTRIBUTION WIDTH 14.8 % (11.6-16.5); WHITE BLOOD COUNT 6.6 X10^3/uL (3.6-10.0)
[2020-11-28 07:33] LABS: ALANINE AMINOTRANSFERASE 93 Units/L (12-78); ALBUMIN 2.4 g/dL (3.4-5.0); ALKALINE PHOSPHATASE 104 Units/L (46-116); ASPARTATE AMINO TRANSFERASE 22 Units/L (15-37); BLOOD UREA NITROGEN 19 mg/dL (7-18); CALCIUM 8.2 mg/dL (8.5-10.1); CARBON DIOXIDE 27.4 mmol/L (21-32); CHLORIDE 105 mmol/L (98-107); COR CA(FOR HYPOALB) 9.5 mg/dL (8.5-10.1); COR NA(FOR HYPERGLY) 144 mmol/L (136-145); CREATININE 0.61 mg/dL (0.55-1.02); SODIUM 141 mmol/L (136-145); TOTAL PROTEIN 5.1 g/dL (6.4-8.2); eGFR NON BLACK RACES > 60 (>60)
[2020-11-28 07:40] VITALS: BP 142/90
--- NOTE | 2020-11-28 08:10 | RAD ---
HISTORYSOBSTUDYCHEST, 1 [id number] bilateral areas of opacity are present suggesting bronchopneumonia. This may have improved slightly even when accounting for the improved aeration.No pleural effusion or pneumothorax.Heart size is normal.Bones are unremarkable.IMPRESSION1. Improved aeration2. Improved bronchopneumoniaElectronically signed by: Quan Mistry (Nov 28, 2020 08:07:30)
[2020-11-28] MEDS ORDERED: ZESTRIL TAB 20 MG ONE (08:17)
[2020-11-28] MEDS: BROVANA IN SCH (09:00)
[2020-11-28] MEDS: PULMICORT NEB TX 0.5 MG NEB SCH (09:00)
[2020-11-28] MEDS: ROBITUSSIN DM PO SCH (09:48)
[2020-11-28] MEDS: ZITHROMAX TAB 250 MG PO SCH (09:48)
[2020-11-28] MEDS: ZESTRIL TAB 20 MG PO SCH (09:48)
[2020-11-28] MEDS: PROTONIX INJ 40 MG VIAL IVP SCH (09:48)
[2020-11-28] MEDS: NYSTATIN POWDER TOP SCH (09:49)
[2020-11-28] MEDS: LOVENOX INJ 40 MG SYR SC SCH (09:49)
[2020-11-28] MEDS: MAGIC MOUTHWASH MT SCH (09:49)
[2020-11-28] MEDS: NS IRRIGATION* 1,000 ML IR SCH (09:49)
[2020-11-28] MEDS: DIFLUCAN 200 MG IV PREMIX* 200 MG/100 ML BAG IV SCH (09:50)
[2020-11-28] MEDS: BETADINE SOLN TOP SCH (09:50)
[2020-11-28] MEDS: LEVAQUIN PREMIX IV 500 MG 500 MG/100 ML BAG IV SCH (09:51)
[2020-11-28] MEDS: BACTROBAN TOPICAL OINT TOP SCH (09:51)
[2020-11-28 10:13] LABS: ABG ALLEN TEST POS; ABG BASE EXCESS 0.3 mmol/L (-2.0-2.0); ABG HCO3 23.1 mmol/L (22-26)
== END 2020-11-28 12:30 | disposition home or self-care (01) | DRG 177 ==
LOC: ER 06:40 → MED/SURG 10:23
PROVIDERS: ADMIT Internal Medicine; ATTEND Internal Medicine
DX: L02.214 Cutaneous abscess of groin; J12.81 Pneumonia due to SARS-associated coronavirus; R09.02 Hypoxemia; U07.1 COVID-19; B37.2 Candidiasis of skin and nail; I10 Essential (primary) hypertension; E11.9 Type 2 diabetes mellitus without complications; B96.29 Other Escherichia coli [E. coli] as the cause of diseases classified elsewhere; B37.0 Candidal stomatitis; B96.5 Pseudomonas (aeruginosa) (mallei) (pseudomallei) as the cause of diseases classified elsewhere